=== PATIENT | male | born 1965 | race Caucasian/White ===

== ENCOUNTER → 2017-10-01 08:16 | Outpatient (CLI) | payer OTHER, SELFPAY ==
--- NOTE | 2017-10-01 08:18 | RAD_ITS ---
STUDY: X-RAY - LEFT SHOULDER REASON FOR EXAM: Male, 51 years old. Chronic shoulder pain. No history of trauma. TECHNIQUE: 3 view(s) of the shoulder. COMPARISON: None. FINDINGS: Normal glenohumeral articulation. Normal acromioclavicular joint. Normal acromion. Normal humeral head and visualized proximal humerus. The soft tissue structures are unremarkable. Normal visualized pulmonary apex. RAD/Shoulder min 2 Views IMPRESSION: Normal x-ray examination of the shoulder. Electronically Signed: Arjun Diaz MD at 15:39 EST Tel [phone], Service support ,
== END ==
PROVIDERS: Family Provider Family Medicine; PCP Family Medicine; Visit Provider Orthopaedic Surgery
DX: M25.512 Pain in left shoulder (principal)
CPT/HCPCS: 73030

== ENCOUNTER → 2018-03-03 12:38 | Outpatient (CLI) | payer OTHER, SELFPAY ==
[2018-03-03 14:21] LABS: Absolute Lymphocyte Count 2.06 X10^3/ul (0.83-4.51); Absolute Neutrophil Count 2.5 X10^3/uL (2.0-7.7); Basophil# 0.02 X10^3/uL; Basophil% 0.4 % (0-1); Eosinophil# 0.07 X10^3/uL; Eosinophils% 1.3 % (0-5); Hemoglobin 14.9 g/dl (13.0-16.5); Lymphocyte # 2.06 X10^3/ul (4.0); Lymphocyte % 38.6 % (19-41); Mean Corp Hgb Conc 33.9 g/gl (32-36); Mean Corpuscular Hgb 32.5 pg (27.0-32.0); Mean Corpuscular Volume 96.1 fL (80-94); Monocyte# 0.65 X10^3/uL; Monocyte% 12.2 % (0-10); Neutrophil # 2.52 X10^3/uL (2.7-7.7); Neutrophil % 47.1 % (47-70); Platelet Count 155 K/mm3 (150-450); RBC Distribution Width SD 41.6 fl (35.1-43.9); Red Blood Count 4.58 M/mm3 (4.6-6.2); White Blood Count 5.3 K/mm3 (4.4-11.0)
[2018-03-03 14:22] LABS: POSITIVE COUNT NO; POSITIVE DIFFERENTIAL NO; POSITIVE MORPHOLOGY NO
[2018-03-03 14:37] LABS: Anion Gap 8 (5-15); BUN 16 mg/dL (7-18); BUN/Creat Ratio 16.4 RATIO (10-20); Calcium,Total 9.3 mg/dL (8.5-10.1); Chloride 104 mmol/L (98-107); Creatinine, Serum 0.98 mg/dL (0.70-1.30); EST Glomerular Filtration Rate 86 mL/min (>60); Est Glom Filt Rate - Afr Amer 104 mL/min (>60); Glucose 93 mg/dL (74-106); PSA,Total- Diagnostic 0.97 ng/mL (0.0-4.0); Potassium 3.9 mmol/L (3.5-5.1); Sodium Level 141 mmol/L (136-145)
== END ==
PROVIDERS: Family Provider Family Medicine; PCP Family Medicine; Visit Provider Family Medicine
DX: R31.9 Hematuria, unspecified (principal)
CPT/HCPCS: 36415; 80048; 84153; 85025; 87086

== ENCOUNTER → 2018-03-06 08:42 | Outpatient (CLI) | payer OTHER, SELFPAY ==
--- NOTE | 2018-03-06 | CYSPIN_PTH ---
PATIENT: KIMMY GUTHRIE LOC: [facility] U#:[id number] AGE/SX: 59/M ROOM: RE03/06/[address]: Dr. Kana Suarez MD : 1965 BED: DIS: SPEC #: [id number] RECD: 03/06/18 11:37 STATUS: NASRIN AMIRA #: [id number] JAKUB: 03/06/18 00:[address]: Kana Suarez DEPT: CYTOLOGY RECD BY: Saravanan Stephens Tissues: Urine Procedures: Pap Stain (control) Special Stain Group II Cytospin Fluid HEADER OPERATION: Not noted PRE-OP DIAGNOSIS: Hematuria TISSUE SUBMITTED: Urine for cytology DIAGNOSIS CYTOLOGY Urine for cytology (cytospin): Negative for malignant cells. AM:alissa 03/09/18 CYTOLOGY STUDY Slides are reviewed. CYTOLOGY GROSS Received is 2700 ml of clear yellow fluid labeled with the patient's name and and designated per the requisition as urine. Submitted for cytology preparation. 03/06/18 TC:5 CPT: 77546
[2018-03-06 08:44] LABS: Cytology, Body Fluid / CSF SEE PATHOLOGY REPORT
== END ==
PROVIDERS: Family Provider Family Medicine; PCP Family Medicine; Visit Provider Family Medicine
DX: R31.9 Hematuria, unspecified (principal)
CPT/HCPCS: 81050; 88108; 88313

== ENCOUNTER → 2018-03-06 09:48 | Outpatient (CLI) | payer OTHER, SELFPAY ==
--- NOTE | 2018-03-06 09:51 | US_ITS ---
STUDY: RENAL ULTRASOUND - COMPLETE REASON FOR EXAM: Male, 52 years old. Hematuria. TECHNIQUE: Ultrasound evaluation of the kidneys was performed with real-time and static hoffman-scale imaging. COMPARISON: None. FINDINGS: RIGHT KIDNEY: Normal location of the right kidney, which is normal in size. The right kidney measures 10.4 cm. There is a normal cortex of the right kidney. The renal cortex measures 1.5 cm. There is no right renal mass or cyst. There are no right renal calculi. There is no right hydronephrosis. DISTAL RIGHT URETER: There is non-visualization of the distal right ureter. There is no demonstrated right ureterovesical junction calculus. There are 2 visualized right ureteral jets. LEFT KIDNEY: Normal location of the left kidney, which is normal in size. The left kidney measures 11.1 cm. There is a normal cortex of the left kidney. The renal cortex measures 2.1 cm. There is no left renal mass or cyst. There is a 7 mm calcification in the lower pole with shadowing. There is no left hydronephrosis. DISTAL LEFT URETER: There is non-visualization of the distal left ureter. There is no demonstrated left ureterovesical junction calculus. There is a visualized left ureteral jet. BLADDER: The distended urinary bladder has a volume of 482 ml. There is a normal wall thickness of the distended urinary bladder. There is no demonstrated mass within the urinary bladder. There are no demonstrated bladder calculi. Prostate mildly invaginates into the bladder floor. US/Kidney and Bladder IMPRESSION: 1. 2 ureteral jets seen on the right. Question duplicated collecting system. The right kidney is otherwise unremarkable. 2. Nonobstructing left renal calculi without other abnormality. 3. Normal urinary bladder. 4. Mild prostatic enlargement which invaginates into the bladder floor. Electronically Signed: Jhonatan Pablo DO at 22:39 EDT Tel [phone], Service support ,
== END ==
PROVIDERS: Family Provider Family Medicine; PCP Family Medicine; Visit Provider Family Medicine
DX: R31.9 Hematuria, unspecified (principal)
CPT/HCPCS: 76770

== ENCOUNTER → 2018-03-18 07:00 | Outpatient (CLI) | payer OTHER, SELFPAY | PROVIDERS: Family Provider Family Medicine; PCP Family Medicine; Visit Provider Urology | DX: N20.0 Calculus of kidney (principal) | CPT/HCPCS: 74176 ==

== ENCOUNTER → 2018-12-22 | Outpatient (CLI) | payer OTHER, SELFPAY ==
[2018-12-22 11:20] VITALS: BMI 21.0
== END | disposition home or self-care (01) ==
LOC: LABSPEC 14:22
PROVIDERS: Family Provider Family Medicine; PCP Family Medicine; Referring Provider Physician Assistant Medical; Visit Provider Physician Assistant Medical
DX: J02.9 Acute pharyngitis, unspecified (principal)
CPT/HCPCS: 87081

== ENCOUNTER → 2019-05-03 | Outpatient (CLI) | payer OTHER, SELFPAY ==
[2018-12-22 11:20] VITALS: BMI 21.0
--- NOTE | 2019-05-03 17:06 | RAD_ITS ---
STUDY: X-RAY - LUMBAR SPINE REASON FOR EXAM: Male, 53 years old. Acute low back pain. TECHNIQUE: 5 view(s) of the lumbar spine were obtained. COMPARISON: None FINDINGS: Normal lumbar lordosis. There is no substantial scoliosis. There is a normal alignment of the vertebrae. Normal vertebral bodies and endplates. There is multi-level degenerative disc disease with multi-level disc space narrowing. There is no demonstrated fracture. There are degenerative changes of the facet joints. There is no obvious organomegaly, mass, dilated bowel or pathologic calcifications. RAD/L/S Spine Min 4 Views IMPRESSION: Multilevel degenerative disc disease and degenerative arthropathy of the lumbar spine. Electronically Signed: Kath Patton MD at 10:00 EDT , Service support ,
--- NOTE | 2019-05-03 17:06 | RAD_ITS ---
STUDY: X-RAY - PELVIS AND RIGHT HIP REASON FOR EXAM: Male, 53 years old. Decreased range of motion of the right hip. TECHNIQUE: 3 views of the pelvis and hip. COMPARISON: CT of the abdomen and pelvis dated March 18, 2018. FINDINGS: There is a non-specific bowel gas pattern. Normal visualized soft tissue structures. Iliac wings and sacrum are obscured by bowel gas. Normal bilateral superior and inferior pubic rami. Normal pubic symphysis. Normal bilateral ischial tuberosities. There are osteoarthritic changes of the femoral head with marginal osteophyte formation. Normal acetabulum. Normal hip joint. RAD/HIP, UNI W/ Pelvis 2-3 Views IMPRESSION: Mild degenerative arthropathy. Electronically Signed: Kath Patton MD at 10:45 EDT , Service support ,
== END | disposition home or self-care (01) ==
LOC: MTRAD 17:06
PROVIDERS: Family Provider Family Medicine; PCP Family Medicine; Referring Provider Family Medicine; Visit Provider Family Medicine
DX: M54.5 Low back pain (principal); M25.651 Stiffness of right hip, not elsewhere classified
CPT/HCPCS: 72110; 73502

== ENCOUNTER → 2020-06-01 15:00 | Outpatient (CLI) | payer OTHER, SELFPAY ==
[2018-12-22 11:20] VITALS: BMI 21.0
[2020-06-01 17:58] LABS: Anion Gap 9 (5-15); BUN 10 mg/dL (7-18); BUN/Creat Ratio 9.8 RATIO (10-20); Calcium,Total 9.9 mg/dL (8.5-10.1); Chloride 103 mmol/L (98-107); Cholesterol 227 mg/dL (200); Creatinine, Serum 1.02 mg/dL (0.70-1.30); EST Glomerular Filtration Rate 81 mL/min (>60); Est Glom Filt Rate - Afr Amer 98 mL/min (>60); Glucose 95 mg/dL (74-106); High Density Lipoprotein 112 mg/dL; Potassium 3.7 mmol/L (3.5-5.1); Sodium Level 138 mmol/L (136-145); Triglycerides 53 mg/dL; Very Low Density Lipoprotein 11 mg/dL (5-40)
== END ==
PROVIDERS: PCP Family Medicine; Referring Provider Family Medicine; Visit Provider Nurse Practitioner Family
DX: Z00.00 Encounter for general adult medical examination without abnormal findings (principal); Z13.220 Encounter for screening for lipoid disorders
CPT/HCPCS: 36415; 80048; 80061

== ENCOUNTER 2022-04-26 06:27 | Day surgery (SDC) | payer OTHER, SELFPAY ==
[2022-04-26] MEDS: Lactated Ringers 1,000 ML 15 ML IV (06:40)
--- NOTE | 2022-04-26 06:49 | PCM.HP.STD ---
[facility] - General General Date of Service: 04/26/22 Chief Complaint: Screening for intestinal cancer [facility] Narrative KIMMY GUTHRIE, is a 56 M who presents who presents via open access today for screening colonoscopy. He has no complaints. Previous colonoscopy was April 18, 2017. He has a family history with a mother had colon cancer. He is enjoying good health. He denies bright red blood per rectum or melena. No abdominal pain. No history of DVT. [facility] Medical History (Updated 04/24/22 @ 09:41 by Rody Nice) Alcohol use Back pain Former smoker Wears glasses Home Medications NK 10/01/17 [History Last Taken Unknown] Allergy/AdvReac Type Severity Reaction Status Date / Time No Known Allergies Allergy Verified 04/26/22 06:54 Family History Mother Breast cancer Colon cancer Surgical History (Updated 03/08/22 @ 16:08 by Jaki Lares) History of colonoscopy Social History Smoking Status: Former smoker ROS Constitutional Constitutional: Reports systems reviewed and no addt'l complaints, except as documented Cardiovascular Cardiovascular: Denies chest pain Respiratory/Chest Respiratory/Chest: Denies shortness of breath at rest Gastrointestinal Gastrointestinal: Denies abdominal pain, change in bowel habits, hematochezia or melena Physical Exam Const alert, oriented x3 and no apparent distress General Appearance: cooperative and comfortable Eyes General Eye: normal appearance of both eyes Neck General: normal visual inspection Chest inspection of chest normal Resp Effort and Inspection: able to speak in complete sentences and symmetric chest movement Auscultation: clear to auscultation bilaterally Cardio regular rate and regular rhythm GI soft to palpation, non-tender and non-distended Extremity no calf tenderness Neuro oriented x3 Psych thought process normal Assessment & Plan Assessment/Plan (1) Encounter for screening for malignant neoplasm of colon: PLAN: The patient presents via open access today. He presents for screening colonoscopy with possible biopsy or polypectomy as indicated. He is aware of the technique, benefit, risk, alternatives. He has had an opportunity to ask and have questions answered. We will proceed as noted. Russell Lam M.D., F.A.C.S.
[2022-04-26 06:55] VITALS: BP 136/79; PULSE 69; RESP 16; TEMP 37; O2SAT 100; BMI 20.7
[2022-04-26 07:39] VITALS: BP 117/77; BP 136/79; PULSE 69; RESP 16; TEMP 36.5; O2SAT 99
--- NOTE | 2022-04-26 07:39 | OP.COLON_ITS ---
Patient Name: Ulises Aguiar Procedure Date: 04/26/2022 7:17 AM Date of : 1965 Age: 56 Procedure: Colonoscopy Indications: Family history of colon cancer in a first-degree relative Providers: Russell Lam MD Medicines: See the Anesthesia note for documentation of the administered medications Patient Profile: Last Colonoscopy: 5 years ago. Complications: No immediate complications. Procedure: Pre-Anesthesia Assessment: - Prior to the procedure, a History and Physical was performed, and patient medications and allergies were reviewed. The patient's tolerance of previous anesthesia was also reviewed. The risks and benefits of the procedure and the sedation options and risks were discussed with the patient. All questions were answered, and informed consent was obtained. Prior Anticoagulants: The patient has taken no previous anticoagulant or antiplatelet agents. ASA Grade Assessment: II - A patient with mild systemic disease. After reviewing the risks and benefits, the patient was deemed in satisfactory condition to undergo the procedure. After I obtained informed consent, the scope was passed under direct vision. Throughout the procedure, the patient's blood pressure, pulse, and oxygen saturations were monitored continuously. The colonoscope was introduced through the anus and advanced to the cecum, identified by appendiceal orifice and ileocecal valve. The colonoscopy was performed without difficulty. The patient tolerated the procedure well. The quality of the bowel preparation was good. Scope In: 7:25:12 AM Scope Withdrawal Time 0 hours 6 minutes 41 seconds Scope Out: 7:35:16 AM Total Procedure Duration Time 0 hours 10 minutes 4 seconds Findings: The perianal and digital rectal examinations were normal. Scattered diverticula were found in the sigmoid colon and descending colon. The exam was otherwise without abnormality. Impression: - Diverticulosis in the sigmoid colon and in the descending colon. - The examination was otherwise normal. - No specimens collected. Recommendation: - Discharge patient to home. - Resume previous diet. - Continue present medications. - Repeat colonoscopy in 5 years for surveillance. Procedure Code(s): --- Professional --- 36211, Colonoscopy, flexible; diagnostic, including collection of specimen(s) by brushing or washing, when performed (separate procedure) Diagnosis Code(s): --- Professional --- Z80.0, Family history of malignant neoplasm of digestive organs K57.30, Diverticulosis of large intestine without perforation or abscess without bleeding CPT copyright 2017 [employer] [place] [employer]. All rights reserved. The codes documented in this report are preliminary and upon tipple tender review may be revised to meet current compliance requirements. Russell Lam MD 04/26/2022 7:39:32 AM This report has been signed electronically. Number of Addenda: 0 Note Initiated On: 04/26/2022 7:17 AM
--- NOTE | 2022-04-26 07:40 | OP.CCLET_ITS ---
04/26/2022 Kana Suarez [address] [facility] [address] [place] [address] Re : Colonoscopy procedure for Ulises Aguiar Dear Dr. Suarez This procedure was performed on Tuesday, April 26, 2022. My impressions and recommendations are as follows: Impressions : - Diverticulosis in the sigmoid colon and in the descending colon. - The examination was otherwise normal. - No specimens collected. Recommendations : - Discharge patient to home. - Resume previous diet. - Continue present medications. - Repeat colonoscopy in 5 years for surveillance. My findings are described in the full procedure note, which is enclosed. If I can be of further assistance, please feel free to contact me at Doctor phone number(s): Work: . Sincerely, Russell Lam MD 04/26/2022 7:39:32 AM This report has been signed electronically.
[2022-04-26 07:45] VITALS: BP 126/86; BP 136/79; PULSE 54; RESP 14; O2SAT 100
[2022-04-26 07:50] VITALS: BP 125/79; BP 136/79; PULSE 72; RESP 16; O2SAT 97
[2022-04-26 07:54] VITALS: BP 118/79; BP 136/79; PULSE 73; RESP 16; TEMP 36.7; O2SAT 100
[2022-04-26 08:00] VITALS: BP 136/79
== END 2022-04-26 08:18 | disposition home or self-care (01) ==
LOC: EN 06:29 → AC 06:30
PROVIDERS: PCP Family Medicine; Referring Provider Family Medicine; Visit Provider Surgery
PROC: 0DJD8ZZ Inspection of Lower Intestinal Tract, Via Natural or Artificial Opening Endoscopic (ICD-10-PCS; CPT 45378; principal; 2022-04-26 07:25)
DX: Z12.11 Encounter for screening for malignant neoplasm of colon (principal); K57.30 Diverticulosis of large intestine without perforation or abscess without bleeding; Z80.0 Family history of malignant neoplasm of digestive organs; Z87.891 Personal history of nicotine dependence
CPT/HCPCS: 45378; J7120

== ENCOUNTER → 2023-01-06 | Outpatient (CLI) | payer OTHER, SELFPAY ==
[2023-01-06 15:43] LABS: Cholesterol 226 mg/dL (200); EST Glomerular Filtration Rate 92 mL/min (>60); Est Glom Filt Rate - Afr Amer 111 mL/min (>60); Glucose 101 mg/dL (74-106); High Density Lipoprotein 84 mg/dL; PSA,Total - Annual Screen 4.26 ng/mL (0.00-4.00); Triglycerides 68 mg/dL; Very Low Density Lipoprotein 14 mg/dL (5-40)
[2023-01-06 16:34] LABS: Hepatitis C Antibody Non-Reactive (Nonreactive)
== END | disposition home or self-care (01) ==
LOC: MTLAB 12:41
PROVIDERS: PCP Family Medicine; Referring Provider Family Medicine; Visit Provider Family Medicine
DX: Z00.00 Encounter for general adult medical examination without abnormal findings (principal); Z13.220 Encounter for screening for lipoid disorders; Z12.5 Encounter for screening for malignant neoplasm of prostate
CPT/HCPCS: 36415; 80061; 82565; 82947; 84153; 86803; G0103

== ENCOUNTER → 2023-03-25 | Outpatient (CLI) | payer OTHER, SELFPAY ==
[2023-03-25 15:42] LABS: PSA,Total- Diagnostic 1.97 ng/mL (0.0-4.0)
== END | disposition home or self-care (01) ==
LOC: LAB 14:04
PROVIDERS: PCP Family Medicine; Referring Provider Urology; Visit Provider Urology
DX: R97.20 Elevated prostate specific antigen [PSA] (principal)
CPT/HCPCS: 36415; 84153

== ENCOUNTER → 2024-01-08 | Outpatient (CLI) | payer OTHER, SELFPAY ==
[2024-01-08 16:07] LABS: Cholesterol 213 mg/dL (200); Creatinine, Serum 0.85 mg/dL (0.70-1.30); EST Glomerular Filtration Rate 99 mL/min (>60); Est Glom Filt Rate - Afr Amer 119 mL/min (>60); Glucose 85 mg/dL (74-106); High Density Lipoprotein 98 mg/dL; PSA,Total- Diagnostic 6.15 ng/mL (0.0-4.0); Triglycerides 43 mg/dL; Very Low Density Lipoprotein 9 mg/dL (5-40)
== END | disposition home or self-care (01) ==
LOC: MFPLAB 11:49
PROVIDERS: PCP Family Medicine; Visit Provider Family Medicine
DX: Z00.00 Encounter for general adult medical examination without abnormal findings (principal); R97.20 Elevated prostate specific antigen [PSA]; Z13.220 Encounter for screening for lipoid disorders
CPT/HCPCS: 36415; 80061; 82565; 82947; 84153

== ENCOUNTER → 2024-12-09 | Outpatient (CLI) | payer OTHER, SELFPAY ==
--- NOTE | 2024-12-09 15:42 | RAD_ITS ---
PROCEDURE: NECK FOR SOFT TISSUE 12/09/2024 REASON FOR EXAM: L SUBMANDIBULAR PAIN AND LYMPH NODE SWELLING WITH FULLNESS ON SWA TECHNIQUE: 2 views of the soft tissue neck COMPARISON: None available FINDINGS: Epiglottis and aryepiglottic folds appear within limits. No prevertebral soft tissue swelling. No evidence of airway narrowing. Visualized apices appear clear. Spondylosis/discogenic change appears greatest at C5-6 and C6-7. RAD/Neck for Soft Tissue IMPRESSION: Airway appears within limits. Spondylosis/discogenic change appears greatest at C5-6 and C6-7. Reading Location: [id number]
[2024-12-09 17:49] LABS: Absolute Lymphocyte Count 2.14 X10^3/uL (0.83-4.51); Absolute Neutrophil Count 2.3 X10^3/uL (2.0-7.7); Basophil# 0.04 X10^3/uL; Basophil% 0.8 % (0-1); Eosinophil# 0.08 X10^3/uL; Eosinophils% 1.5 % (0-5); Hematocrit 42.9 % (40-54); Hemoglobin 14.6 g/dL (13.0-16.5); Lymphocyte # 2.14 X10^3/ul (0.83-4.51); Lymphocyte % 40.5 % (19-41); Mean Corpuscular Volume 94.1 fL (80-94); Mean Platelet Vol. 11.1 fl (6.2-12.0); Monocyte# 0.72 X10^3/uL; Monocyte% 13.6 % (0-10); NRBC Flagged by Analyzer 0 % (0-5); Neutrophil # 2.29 X10^3/uL (2.7-7.7); Neutrophil % 43.2 % (47-70); Platelet Count 193 K/mm3 (150-450); RBC Distribution Width SD 41.9 fl (35.1-43.9); Red Blood Count 4.56 M/mm3 (4.6-6.2); White Blood Count 5.3 K/mm3 (4.4-11.0)
[2024-12-09 17:52] LABS: Erythrocyte Sedimentation Rate 4 mm/hr (0-20)
[2024-12-09 18:15] LABS: ALB/GLOB Ratio 1.8 RATIO (0.9-2.4); AST(SGOT) 31 U/L (<=37); Alanine Aminotransfer ALT/SGPT 20 U/L (<=46); Albumin, Serum 4.6 g/dL (3.5-5.0); Alkaline Phosphatase 63 U/L (40-129); Anion Gap 11 (5-15); BUN 15 mg/dL (4-19); BUN/Creat Ratio 16.9 RATIO (10-20); Calcium,Total 9.9 mg/dL (7.6-11.0); Carbon Dioxide 26.3 mmol/L (21.0-32.0); Chloride 103 mmol/L (98-108); Cholesterol 209 mg/dL (<=200); Creatinine, Serum 0.88 mg/dL (0.70-1.20); EST Glomerular Filtration Rate 99 (>60); Globulin 2.6 g/dL (2.2-4.2); Glucose 92 mg/dL (70-99); High Density Lipoprotein 91 mg/dL; Low Density Lipoprotein Calc. 105 mg/dL; PSA,Total - Annual Screen 1.87 ng/mL (0.02-4.00); Protein, Total 7.2 g/dL (5.9-8.4); Sodium Level 140 mmol/L (133-145); Total Bilirubin 0.34 mg/dL (0.00-1.30); Triglycerides 66 mg/dL; Very Low Density Lipoprotein 13 mg/dL (5-40)
[2024-12-09 18:18] LABS: CRP < 3.00 mg/L (0.0-3.0)
[2024-12-13 13:08] LABS: ANTINUCLEAR ANTIBODIES DIRECT Negative (Negative)
== END | disposition home or self-care (01) ==
LOC: MTLAB 15:41
PROVIDERS: PCP Family Medicine; Referring Provider Family Medicine; Visit Provider Family Medicine
DX: Z12.5 Encounter for screening for malignant neoplasm of prostate (principal); R59.0 Localized enlarged lymph nodes; M54.2 Cervicalgia
CPT/HCPCS: 36415; 70360; 80053; 80061; 84153; 85025; 85652; 86038; 86140; G0103

== ENCOUNTER → 2025-02-08 | Outpatient (CLI) | payer OTHER, SELFPAY ==
--- NOTE | 2025-02-08 06:13 | CT_ITS ---
PROCEDURE: SOFT TISSUE NECK WITHOUT CONTR 02/08/2025 REASON FOR EXAM: NECK PAIN No known injury. TECHNIQUE: SOFT TISSUE NECK WITHOUT CONTR CONTRAST: None One or more dose reduction techniques were used (e.g., Automated exposure control, adjustment of the mA and/or kV according to patient size, use of iterative reconstruction technique). RADIATION DOSE SUMMARY: CTDlvol: 14.45 mGy DLP: 429.69 mGycm COMPARISON: None FINDINGS: Airway: Midline and patent. Salivary glands: Unremarkable. Lymph nodes: No cervical lymphadenopathy. Thyroid: Unremarkable. Vasculature: Unremarkable Orbits: Unremarkable at visualized levels. Paranasal sinuses and mastoids: Minimal mucosal thickening at the base of the maxillary sinuses. Lung apices: Clear. Upper mediastinum: Visualized mediastinum is unremarkable. Bones: Unremarkable. Other: CT/Soft Tissue Neck without Contr IMPRESSION: NO ACUTE FINDINGS. Reading Location: [place] [id number]
--- NOTE | 2025-02-08 06:13 | CT_ITS ---
PROCEDURE: SOFT TISSUE NECK WITHOUT CONTR 02/08/2025 REASON FOR EXAM: NECK PAIN No known injury. TECHNIQUE: SOFT TISSUE NECK WITHOUT CONTR CONTRAST: None One or more dose reduction techniques were used (e.g., Automated exposure control, adjustment of the mA and/or kV according to patient size, use of iterative reconstruction technique). RADIATION DOSE SUMMARY: CTDlvol: 14.45 mGy DLP: 429.69 mGycm COMPARISON: None FINDINGS: Airway: Midline and patent. Salivary glands: Unremarkable. Lymph nodes: No cervical lymphadenopathy. Thyroid: Unremarkable. Vasculature: Unremarkable Orbits: Unremarkable at visualized levels. Paranasal sinuses and mastoids: Minimal mucosal thickening at the base of the maxillary sinuses. Lung apices: Clear. Upper mediastinum: Visualized mediastinum is unremarkable. Bones: Unremarkable. Other: CT/Soft Tissue Neck without Contr IMPRESSION: NO ACUTE FINDINGS. Reading Location: [place] [address]
--- OUTSIDE RECORDS SUMMARY | 2025-02-08 06:14 | XMS RPT_ITS | CCD ---
Author Organization [facility] Care Team Providers Care Tsa Screener Name Role Phone Russell Lam MD Unavailable Cher Moreno LPN Unavailable Unavailab Cher Wayne LPN Unavailable Unavailab Cher Wayne LPN Unavailable Unavailab Russell Figueroa MD Unavailable Dr. Jennie Suarez Primary Care Provider Jaki Lares Attending Provider Unavailable Dr. Jennie Suarez Referring Provider Dr. Russell Lam Attending Provider Dr. Russell Lam Other Provider Dr. Jennie Suarez MD Primary Care Provider Dr. Jennie Suarez MD Attending Provider Dr. Jennie Suarez MD Referring Provider Jennie Suarez Referring Unavailable Jennie Suarez Attending Unavailable Jennie Suarez Primary Care Unavailable Jennie Suarez Unavailable Jennie Suarez Primary Care Unavailable JENNIE SUAREZ MD, MD, ERIC A Primary Care Unavailable Medications Completed/Discontinued Medications Medication Drug Class(es) Dates Sig (Normalized) Sig (Original) aspirin 81 mg delayed release oral tablet (3 sources) Platelet Aggregation Inhibitor, Nonsteroidal Anti-inflammatory Drug Start: 04-08-2017 ADULT ASPIRIN EC LOW STRENGTH 81 MG [facility] ASPIRIN [id number] Russell Lam MD Start: 04-08-2017 ADULT ASPIRIN EC LOW STRENGTH 81 MG [facility] ASPIRIN [id number] Russell Lam MD Drug Treatment Unknown - unknown (1 source) No information a vailable. polyethylene glycol 3350 187768 mg / potassium chloride 2970 mg / sodium bicarbonate 6740 mg / sodium chloride 5860 mg / sodium sulfate 94347 mg powder for oral solution (2 sources) Osmotic Laxative Start: 04-08-2017 PEG-3350/ELECTROLYTES 236 GM SOLR as directed PEG 7869-MNN-JFYRV-NACL-NASUL F [id number] Arlene Alaniz PA-C Start: 04-08-2017 PEG-3350/ELECT ROLYTES 236 GM SOLR as directed PEG 2852-QQY-FQVOH-NACL-NASULF [id number] Arlene Alaniz PA-C Problems Active Problems Problem Classification Problem Date Documented Da te Episodic/Chronic Lymphadenitis (1 source) Localized enlarged lymph nodes; Translations: [Localized enlarged lymph nodes] Onset: 12-22-2024 Episodic Unclassified (6 sources) Encounter for screening for malignant neoplasm of intestinal tract, unspecified; Translations: [Patient encounter status] Onset: 04-08-2017 04-08-2017 Episodic Unclassified (2 sources) Digestive system disease screening; Translations: [Encounter for screening for malignant neoplasm of intestinal tract, unspecified] Onset: 04-08-2017 04-08-2017 Past or Other Problems Problem Classification Problem Date Documented Da te Episodic/Chronic Inflammation; infection of eye (except that caused by tuberculosis or sexually transmitteddisease) (11 sources) Blepharitis; Translations: [[place] eye disease] Onset: 02-03-2017 02-03-2017 Episodic Results Test Name Value Interpretation Reference Range Facility ANTINUCLEAR ANTIBODIES DIREC Ton 12-13-2024 MALA,DIRECT Negative Normal Negative [facility] [place] Comment on above: Order Comment: Order Date: 12/09/24 Order Info: [id number] - MALA Result Comment: Perf ormed at: - [facility] [address] [id number] Hide Buffer: Sly Rivera PhD, Phone: [phone] Performed By: #### L 101.9894, Z900.4779, W446.6263, P6708.2938 #### [facility] [place] Laboratory [facility] [place], [address] Absolute lymphocyte countOrd ered By: Jennie Suarez on 12-09-2024 Lymphocytes Auto (Unsp spec) [#/Vol] 2.14 10*3/uL 0.83-4.51 [facility] [place] Absolute neutrophil countOrd ered By: Jennie Suarez on 12-09-2024 Neutrophils (Bld) [#/Vol] 2.3 10*3/uL 2.0-7.7 [facility] [place] Anion gap in Serum or Plasma Ordered By: Jennie Suarez on 12-09-2024 Anion gap [Moles/Vol] 11 mmol/L 12-09 [facility] Automated lymphocyte count a s percentage of total leukocytesOrdered By: Jennie Suarez on 12-09-2024 Lymphocytes/100 WBC Auto (Unsp spec) 40.5 % [facility] [place] BUN/creatinine ratioOrdered By: Jennie Suarez on 12-09-2024 Urea nitrogen/Creatinine [Mass ratio] 16.9 mg/mg - [facility] Basophil percentageOrdered B y: Jennie Suarez on 12-09-2024 Basophils/100 WBC (Bld) 0.8 % 0-1 [facility] Bilirubin, totalOrdered By: Jennie Suarez on 12-09-2024 Bilirubin [Mass/Vol] 0.34 mg/dL 0.00-1.30 [facility] CBC W/Diff, Automatedon 11-25 Absolute Lymph 2.14 X10 3/uL Normal 0.83-4.51 [facility] [place] Comment on above: Order Comment: Order Date: 12/09/24 Order Info: [id number] - CBCD Order Info: [id number] - SED Performed By: #### L 100.0100, L501.9910, L500.4100 #### [facility] Laboratory [address] [place], [address] Absolute Neut 2.3 X10 3/uL Normal 2.0-7.7 [facility] [place] Comment on above: Order Comment: Order Date: 12/09/24 Order Info: [id number] - CBCD Order Info: [id number] - SED Performed By: #### L 100.0100, L501.9910, L500.4100 #### [facility] Laboratory [address] [place], [address] Basophils/100 WBC (Bld) 0.8 % Normal 0-1 [facility] Comment on above: Order Comment: Order Date: 12/09/24 Order Info: 183-1 - CBCD Order Info: [id number] - SED Performed By: #### L 100.0100, L501.9910, L500.4100 #### [facility] Laboratory [address] [place], [address] Eosinophils/100 WBC (Bld) 1.5 % Normal 0-5 [facility] [place] Comment on above: Order Comment: Order Date: 12/09/24 Order Info: 183- - CBCD Order Info: [id number] - SED Performed By: #### L 100.0100, L501.9910, L500.4100 #### [facility] Laboratory [address] [place], [address] Erythrocyte distribution width (RBC) [Ratio] 12.0 % Normal 11.6-14.6 [facility] [place] Comment on above: Order Comment: Order Date: 12/09/24 Order Info: 183- - CBCD Order Info: [id number] - SED Performed By: #### L 100.0100, L501.9910, L500.4100 #### [facility] [place] Laboratory [address] [place], [address] Hematocrit (Bld) [Volume fraction] 42.9 % Normal 40-54 [facility] [place] Comment on above: Order Comment: Order Date: 12/09/24 Order Info: 183-1 - CBCD Order Info: [id number] - SED Performed By: #### L 100.0100, L501.9910, L500.4100 #### [facility] Laboratory [address] [place], [address] Hemoglobin (Bld) [Mass/Vol] 14.6 g/dL Normal 13.0-16.5 [facility] [place] Comment on above: Order Comment: Order Date: 12/09/24 Order Info: 183-07 - CBCD Order Info: [id number] - SED Performed By: #### L 100.0100, L501.9910, L500.4100 #### [facility] Laboratory [address] [place], [address] IG% 0.400 Normal 0.0-0.9 [facility] Comment on above: Order Comment: Order Date: 12/09/24 Order Info: 183- - CBCD Order Info: [id number] - SED Result Comment: IG% - Immature Granulocytes (promyelocytes, myelocytes and metamyelocytes) > 1% indicates that a LEFT SHIFT is Present. Performed By: #### L 100.0100, L501.9910, L500.4100 #### [facility] Laboratory [address] [place], [address] Lymphocytes/100 WBC (Bld) 40.5 % Normal 19-41 [facility] [place] Comment on above: Order Comment: Order Date: 12/09/24 Order Info: 183-07 - CBCD Order Info: [id number] - SED Performed By: #### L 100.0100, L501.9910, L500.4100 #### [facility] Laboratory [address] [place], [address] MCH (RBC) [Entitic mass] 32.0 pg Normal 27.0-32.0 [facility] Comment on above: Order Comment: Order Date: 12/09/24 Order Info: [id number] - CBCD Order Info: [id number] - SED Performed By: #### L 100.0100, L501.9910, L500.4100 #### [facility] Laboratory [address] [place], [address] MCHC (RBC) [Mass/Vol] 34.0 g/dL Normal 32-36 [facility] Comment on above: Order Comment: Order Date: 12/09/24 Order Info: 183-1 - CBCD Order Info: [id number] - SED Performed By: #### L 100.0100, L501.9910, L500.4100 #### [facility] Laboratory [address] [place], [address] MCV (RBC) [Entitic vol] 94.1 fL High 80-94 [facility] Comment on above: Order Comment: Order Date: 12/09/24 Order Info: 183- - CBCD Order Info: [id number] - SED Performed By: #### L 100.0100, L501.9910, L500.4100 #### [facility] Laboratory [address] [place], [address] Monocytes/100 WBC (Bld) 13.6 % High 0-10 [facility] Comment on above: Order Comment: Order Date: 12/09/24 Order Info: 183-07 - CBCD Order Info: [id number] - SED Performed By: #### L 100.0100, L501.9910, L500.4100 #### [facility] [place] Laboratory [address] [place], [address] Neutrophils/100 WBC (Bld) 43.2 % Low 47-70 [facility] Comment on above: Order Comment: Order Date: 12/09/24 Order Info: 183- - CBCD Order Info: [id number] - SED Performed By: #### L 100.0100, L501.9910, L500.4100 #### [facility] Laboratory [address] [place], [address] Nucleated RBC (Bld) [#/Vol] 0 10*3/uL Normal 0-5 [facility] Comment on above: Order Comment: Order Date: 12/09/24 Order Info: 183- - CBCD Order Info: [id number] - SED Performed By: #### L 100.0100, L501.9910, L500.4100 #### [facility] Laboratory [address] [place], [address] Platelet mean volume (Bld) [Entitic vol] 11.1 fL Normal 6.2-12.0 [facility] Comment on above: Order Comment: Order Date: 12/09/24 Order Info: 183-1 - CBCD Order Info: [id number] - SED Performed By: #### L 100.0100, L501.9910, L500.4100 #### [facility] Laboratory [address] [place], [address] Platelets (Bld) [#/Vol] 193 10*3/uL Normal 150-450 [facility] Comment on above: Order Comment: Order Date: 12/09/24 Order Info: 183- - CBCD Order Info: [id number] - SED Performed By: #### L 100.0100, L501.9910, L500.4100 #### [facility] Laboratory [address] [place], [address] RBC (Bld) [#/Vol] 4.56 10*6/uL Low 4.6-6.2 [facility] Comment on above: Order Comment: Order Date: 12/09/24 Order Info: 183- - CBCD Order Info: [id number] - SED Performed By: #### L 100.0100, L501.9910, L500.4100 #### [facility] Laboratory [address] [place], [address] RDW SD 41.9 fl Normal 35.1-43.9 [facility] Comment on above: Order Comment: Order Date: 12/09/24 Order Info: [id number] - CBCD Order Info: [id number] - SED Performed By: #### L 100.0100, L501.9910, L500.4100 #### [facility] [place] Laboratory [address] [place], [address] WBC (Bld) [#/Vol] 5.3 10*3/uL Normal 4.4-11.0 [facility] Comment on above: Order Comment: Order Date: 12/09/24 Order Info: [id number] - CBCD Order Info: [id number] - SED Performed By: #### L 100.0100, L501.9910, L500.4100 #### [facility] Laboratory [address] [place], [place], [id number] CRPon 12-09-2024 C-REACTIVE PROT < 3.00 Normal 0.0-3.0 [facility] Comment on above: Order Comment: Order Date: 12/09/24 Order Info: [id number] - CMP Order Date: 11/29/24 Order Info: [id number] - LIPID Order Info: [id number] - CRP Order Info: [id number] - PSA Performed By: #### L 101.9900, L500.4050, L501.6710, L3100.5475 #### [facility] Laboratory [address] [facility] [place], [place], [id number] Calculated very low density lipoprotein (VLDL) cholesterol measurementOrdered By: Jennie Suarez on 12-09-2024 Calculated very low density lipoprotein (VLDL) cholesterol measurement 13 mg/dL 5-40 [facility] [place] Carbon dioxide, total [Moles /volume] in Central venous bloodOrdered By: Jennie Suarez on 12-09-2024 CO2 [Moles/Vol] 26.3 mmol/L 21.0-32.0 [facility] Chloride assayOrdered By: Jim Suarez on 12-09-2024 Chloride [Moles/Vol] 103 mmol/L 98-108 [facility] Comprehensive Metabolic Prof ilon 12-09-2024 Albumin [Mass/Vol] 4.6 g/dL Normal 3.5-5.0 [facility] Comment on above: Order Comment: Order Date: 12/09/24 Order Info: [id number] - CMP Order Date: 11/29/24 Order Info: [id number] - LIPID Order Info: [id number] - CRP Order Info: [id number] - PSA Performed By: #### L 101.9900, L500.4050, L501.6710, L3100.5475 #### [facility] Laboratory [address] [place], [address] Albumin/Globulin [Mass ratio] 1.8 {ratio} Normal 0.9-2.4 [facility] Comment on above: Order Comment: Order Date: 12/09/24 Order Info: [id number] - CMP Order Date: 11/29/24 Order Info: [id number] - LIPID Order Info: [id number] - CRP Order Info: 2851 - PSA Performed By: #### L 101.9900, L500.4050, L501.6710, L3100.5475 #### [facility] Laboratory [address] [place], [address] ALK PHOS 63 U/L Normal 40-129 [facility] Comment on above: Order Comment: Order Date: 12/09/24 Order Info: [id number] - CMP Order Date: 11/29/24 Order Info: [id number] - LIPID Order Info: [id number] - CRP Order Info: [id number] - PSA Performed By: #### L 101.9900, L500.4050, L501.6710, L3100.5475 #### [facility] Laboratory [address] [place], [address] ALT [Catalytic activity/Vol] 20 U/L Normal <=46 [facility] [place] Comment on above: Order Comment: Order Date: 12/09/24 Order Info: [id number] - CMP Order Date: 11/29/24 Order Info: [id number] - LIPID Order Info: [id number] - CRP Order Info: [id number] - PSA Performed By: #### L 101.9900, L500.4050, L501.6710, L3100.5475 #### [facility] Laboratory [address] [place], [address] AST [Catalytic activity/Vol] 31 U/L Normal <=37 [facility] Comment on above: Order Comment: Order Date: 12/09/24 Order Info: [id number] - CMP Order Date: 11/29/24 Order Info: [id number] - LIPID Order Info: [id number] - CRP Order Info: [id number] - PSA Performed By: #### L 101.9900, L500.4050, L501.6710, L3100.5475 #### [facility] Laboratory [address] [place], [address] Bilirubin [Mass/Vol] 0.34 mg/dL Normal 0.00-1.30 [facility] Comment on above: Order Comment: Order Date: 12/09/24 Order Info: [id number]- - CMP Order Date: 11/29/24 Order Info: [id number] - LIPID Order Info: [id number] - CRP Order Info: [id number] - PSA Performed By: #### L 101.9900, L500.4050, L501.6710, L3100.5475 #### [facility] Laboratory [address] [place], [address] BUN/CRE 16.9 RATIO Normal 10-20 [facility] Comment on above: Order Comment: Order Date: 12/09/24 Order Info: [id number]- - CMP Order Date: 11/29/24 Order Info: [id number] - LIPID Order Info: [id number] - CRP Order Info: [id number] - PSA Performed By: #### L 101.9900, L500.4050, L501.6710, L3100.5475 #### [facility] Laboratory [address] [place], [address] Calcium [Mass/Vol] 9.9 mg/dL Normal 7.6-11.0 [facility] Comment on above: Order Comment: Order Date: 12/09/24 Order Info: [id number]- - CMP Order Date: 11/29/24 Order Info: [id number] - LIPID Order Info: [id number] - CRP Order Info: [id number] - PSA Performed By: #### L 101.9900, L500.4050, L501.6710, L3100.5475 #### [facility] Laboratory [address] [place], [address] Chloride [Moles/Vol] 103 mmol/L Normal 98-108 [facility] Comment on above: Order Comment: Order Date: 12/09/24 Order Info: [id number] - CMP Order Date: 11/29/24 Order Info: [id number] - LIPID Order Info: [id number] - CRP Order Info: 285-1 - PSA Performed By: #### L 101.9900, L500.4050, L501.6710, L3100.5475 #### [facility] Laboratory [address] [place], [address] CO2 [Moles/Vol] 26.3 mmol/L Normal 21.0-32.0 [facility] Comment on above: Order Comment: Order Date: 12/09/24 Order Info: [id number] - CMP Order Date: 11/29/24 Order Info: [id number] - LIPID Order Info: [id number] - CRP Order Info: [id number] - PSA Performed By: #### L 101.9900, L500.4050, L501.6710, L3100.5475 #### [facility] Laboratory [address] [place], [address] Creatinine [Mass/Vol] 0.88 mg/dL Normal 0.70-1.20 [facility] Comment on above: Order Comment: Order Date: 12/09/24 Order Info: [id number] - CMP Order Date: 11/29/24 Order Info: [id number] - LIPID Order Info: [id number] - CRP Order Info: 2851 - PSA Performed By: #### L 101.9900, L500.4050, L501.6710, L3100.5475 #### [facility] Laboratory [address] [place], [address] GAP 11 Normal 5-15 [facility] Comment on above: Order Comment: Order Date: 12/09/24 Order Info: [id number] - CMP Order Date: 11/29/24 Order Info: [id number] - LIPID Order Info: [id number] - CRP Order Info: [id number] - PSA Performed By: #### L 101.9900, L500.4050, L501.6710, L3100.5475 #### [facility] [address] [place], [address] GFR/1.73 sq M.predicted among non-blacks MDRD (S/P/Bld) [Vol rate/Area] 99 mL/min/{1.73_m2} Normal >60 [facility] Comment on above: Order Comment: Order Date: 12/09/24 Order Info: [id number]- - CMP Order Date: 11/29/24 Order Info: [id number] - LIPID Order Info: [id number] - CRP Order Info: [id number] - PSA Result Comment: mL/m in/1.73m2 CKD-EPI Creatinine Equation (2020) Performed By: #### L 101.9900, L500.4050, L501.6710, L3100.5475 #### [facility] [address] [facility] [place], [address] Globulin (S) [Mass/Vol] 2.6 g/dL Normal 2.2-4.2 [facility] Comment on above: Order Comment: Order Date: 12/09/24 Order Info: [id number]- - CMP Order Date: 11/29/24 Order Info: [id number] - LIPID Order Info: [id number] - CRP Order Info: [id number] - PSA Performed By: #### L 101.9900, L500.4050, L501.6710, L3100.5475 #### [facility] [address] [place], [address] Glucose [Mass/Vol] 92 mg/dL Normal 70-99 [facility] Comment on above: Order Comment: Order Date: 12/09/24 Order Info: [id number]- - CMP Order Date: 11/29/24 Order Info: [id number] - LIPID Order Info: [id number] - CRP Order Info: [id number] - PSA Performed By: #### L 101.9900, L500.4050, L501.6710, L3100.5475 #### [facility] Laboratory [address] [place], [address] Potassium [Moles/Vol] 4.0 mmol/L Normal 3.3-5.1 [facility] Comment on above: Order Comment: Order Date: 12/09/24 Order Info: [id number] - CMP Order Date: 11/29/24 Order Info: [id number] - LIPID Order Info: [id number] - CRP Order Info: 285-1 - PSA Performed By: #### L 101.9900, L500.4050, L501.6710, L3100.5475 #### [facility] [address] [place], [address] Sodium [Moles/Vol] 140 mmol/L Normal 133-145 [facility] Comment on above: Order Comment: Order Date: 12/09/24 Order Info: [id number] - CMP Order Date: 11/29/24 Order Info: [id number] - LIPID Order Info: [id number] - CRP Order Info: 285-1 - PSA Performed By: #### L 101.9900, L500.4050, L501.6710, L3100.5475 #### [facility] [address] [place], [address] T PROT 7.2 g/dL Normal 5.9-8.4 [facility] Comment on above: Order Comment: Order Date: 12/09/24 Order Info: [id number] - CMP Order Date: 11/29/24 Order Info: [id number] - LIPID Order Info: [id number] - CRP Order Info: 285-1 - PSA Performed By: #### L 101.9900, L500.4050, L501.6710, L3100.5475 #### [facility] [address] [place], [address] Urea nitrogen [Mass/Vol] 15 mg/dL Normal 4-19 [facility] Comment on above: Order Comment: Order Date: 12/09/24 Order Info: [id number] - CMP Order Date: 11/29/24 Order Info: [id number] - LIPID Order Info: [id number] - CRP Order Info: [id number] - PSA Performed By: #### L 101.9900, L500.4050, L501.6710, L3100.5475 #### [facility] [address] [place], [place], [address] Eosinophil percentageOrdered By: Jennie Suarez on 12-09-2024 Eosinophils/100 WBC (Bld) 1.5 % 0-5 [facility] Erythrocyte Sed Rateon 12-09 SED RATE 4 mm/hr Normal 0-20 [facility] Comment on above: Order Comment: Order Date: 12/09/24 Order Info: [id number] - CBCD Order Info: [id number] - SED Performed By: #### L 101.9900, L500.4050, L501.6710, L3100.5475 #### [facility] [address] [place], [place], [id number] Erythrocyte distribution wid th ratioOrdered By: Jennie Suarez on 12-09-2024 Erythrocyte distribution width (RBC) [Ratio] 12.0 % 11.6-14.6 [facility] Erythrocyte distribution wid th standard deviationOrdered By: Jennie Suarez on 12-09-2024 Erythrocyte distribution width (RBC) [Ratio] 41.9 fl 35.1-43.9 [facility] Erythrocyte sedimentation ra teOrdered By: Jennie Suarez on 12-09-2024 ESR (Bld) [Velocity] 4 mm/h 0-20 [facility] Glomerular filtration rate ( GFR) estimation/1.73 sq m using serum, plasma, or whole bOrdered By: Jennie Suarez on 12-09-2024 GFR/1.73 sq M.predicted among non-blacks MDRD (S/P/Bld) [Vol rate/Area] 99 mL/min/{1.73_m2} >60 [facility] Comment on above: mL/min/1.73m2 CKD-EP I Creatinine Equation (2020) Hematocrit Auto (Bld) [Volum e fraction]Ordered By: Jennie Suarez on 12-09-2024 Hematocrit (Bld) [Volume fraction] 42.9 % 40-54 [facility] Hemoglobin measurementOrdere d By: Jennie Suarez on 12-09-2024 Hemoglobin (Bld) [Mass/Vol] 14.6 g/dL 13.0-16.5 [facility] [facility] [place] Immature granulocytes/100 WB C Auto (Bld)Ordered By: Jennie Suarez on 12-09-2024 Immature granulocytes/100 WBC (Bld) 0.400 % 0.0-0.9 [facility] [place] Comment on above: IG% - Immature Granu locytes (promyelocytes, myelocytes and metamyelocytes) > 1% indicates that a LEFT SHIFT is Present. LDL calc ser/plasOrdered By: Jennie Suarez on 12-09-2024 Cholesterol in LDL [Mass/Vol] 105 mg/dL [facility] [place] Comment on above: Tlabwjawqp=414-120 m g/dL & Higher Rxux=514 mg/dL or greater Laboratory - Chemistry and C hemistry - challengeOrdered By: Jennie Suarez on 12-09-2024 AST [Catalytic activity/Vol] 31 U/L <38 [facility] [place] Lipid Profileon 12-09-2024 CHOL:HDL 2.30 Normal [facility] [place] Comment on above: Order Comment: Order Date: 12/09/24 Order Info: [id number] - CMP Order Date: 11/29/24 Order Info: [id number] - LIPID Order Info: [id number] - CRP Order Info: [id number] - PSA Performed By: #### L 101.9900, L500.4050, L501.6710, L3100.5475 #### [facility] [place] Laboratory [address] [place], [address] Cholesterol [Mass/Vol] 209 mg/dL High <=200 [facility] Comment on above: Order Comment: Order Date: 12/09/24 Order Info: [id number] - CMP Order Date: 11/29/24 Order Info: [id number] - LIPID Order Info: [id number] - CRP Order Info: [id number] - PSA Result Comment: Chol esterol level, Desirable <200 mg/dL Borderline high cholesterol 200-239 mg/dL High cholesterol >=240 mg/dL Recommendations of the NCEP Adult Treatment Panel for the following risk-cutoff thresholds for the [place] population. Performed By: #### L 101.9900, L500.4050, L501.6710, L3100.5475 #### [facility] [place] Laboratory [address] [place], [address] Cholesterol in HDL [Mass/Vol] 91 mg/dL Normal [facility] [place] Comment on above: Order Comment: Order Date: 12/09/24 Order Info: [id number] - CMP Order Date: 11/29/24 Order Info: [id number] - LIPID Order Info: [id number] - CRP Order Info: [id number] - PSA Result Comment: [place] [employer] Cholesterol Education Program (NCEP) guidelines: <40 mg/dL: Low HDL-cholesterol (major risk factor for CHD) >= 60 mg/dL: High HDL-cholesterol (negative risk factor for CHD) HDL-cholesterol is affected by a number of factors, e.g. smoking, exercise, hormones, sex and age. Performed By: #### L 101.9900, L500.4050, L501.6710, L3100.5475 #### [facility] [place] Laboratory [address] [place], [address] Cholesterol in LDL [Mass/Vol] 105 mg/dL Normal [facility] [place] Comment on above: Order Comment: Order Date: 12/09/24 Order Info: [id number] - CMP Order Date: 11/29/24 Order Info: [id number] - LIPID Order Info: [id number] - CRP Order Info: [id number] - PSA Result Comment: Bord hzhcqk=712-960 mg/dL Higher Exyg=663 mg/dL or greater Performed By: #### L 101.9900, L500.4050, L501.6710, L3100.5475 #### [facility] [place] Laboratory [address] [place], [address] Cholesterol in VLDL [Mass/Vol] 13 mg/dL Normal 5-40 [facility] [place] Comment on above: Order Comment: Order Date: 12/09/24 Order Info: [id number] - CMP Order Date: 11/29/24 Order Info: [id number] - LIPID Order Info: [id number] - CRP Order Info: [id number] - PSA Performed By: #### L 101.9900, L500.4050, L501.6710, L3100.5475 #### [facility] [place] Laboratory [address] [place], [place], [address] Triglyceride [Mass/Vol] 66 mg/dL Normal [facility] Comment on above: Order Comment: Order Date: 12/09/24 Order Info: [id number] - CMP Order Date: 11/29/24 Order Info: [id number] - LIPID Order Info: [id number] - CRP Order Info: [id number] - PSA Result Comment: The drugs N-Acetylcysteine and Metamizole may falsely depress this assay. Normal range: <150 mg/dL Borderline High: 150-199 mg/dL High: 200-499 mg/dL Very High: >500 mg/dL Performed By: #### L 101.9900, L500.4050, L501.6710, L3100.5475 #### [facility] [place] Laboratory [address] [place], [place], [id number] MCV (mean corpuscular volume ) determinationOrdered By: Jennie Suarez on 12-09-2024 MCV (RBC) [Entitic vol] 94.1 fL High 80-94 [facility] Mean corpuscular hemoglobin (MCH) determinationOrdered By: Jennie Suarez on 12-09-2024 MCH (RBC) [Entitic mass] 32.0 pg 27.0-32.0 [facility] [place] Mean corpuscular hemoglobin concentration (MCHC) determinationOrdered By: Jennie Suarez on 12-09-2024 MCHC (RBC) [Mass/Vol] 34.0 g/dL 32-36 [facility] Mean platelet volume determi nationOrdered By: Jennie Suarez on 12-09-2024 Platelet mean volume (Bld) [Entitic vol] 11.1 fL 6.2-12.0 [facility] [place] Monocyte percentageOrdered B y: Jennie Suarez on 12-09-2024 Monocytes/100 WBC (Bld) 13.6 % High 0-10 [facility] Neck for Soft Tissueon 12-09 Neck for Soft Tissue [facility] Imaging Services [address] [place], [place] [address] Neck for Soft Tissue MR#: [id number] Acct: [id number] Name: KIMMY GUTHRIE Rep #: [id number] : 1965 M 59 From: Russell Garcia MD PCP: Dr. Jennie Suarez MD Status: REG CLI Study: Neck for Soft Tissue Date of Exam: 12/09/24 Exam# [id number] Ordering Dr: Jennie Suarez MD PROCEDURE: NECK FOR SOFT TISSUE 12/09/2024 REASON FOR EXAM: L SUBMANDIBULAR PAIN AND LYMPH NODE SWELLING WITH FULLNESS ON SWA TECHNIQUE: 2 views of the soft tissue neck COMPARISON: None available FINDINGS: Epiglottis and aryepiglottic folds appear within limits. No prevertebral soft tissue swelling. No evidence of airway narrowing. Visualized apices appear clear. Spondylosis/discogen ic change appears greatest at C5-6 and C6-7. RAD/Neck for Soft Tissue IMPRESSION: Airway appears within limits. Spondylosis/discogen ic change appears greatest at C5-6 and C6-7. Reading Location: [facility] CC: Dr. Jennie Suarez MD Quantitative Researcher: Signed Normal [facility] [place] Neutrophil percentageOrdered By: Jennie Suarez on 12-09-2024 Neutrophils/100 WBC (Bld) 43.2 % Low 47-70 [facility] [place] Nucleated red blood cell per centageOrdered By: Jennie Suarez on 12-09-2024 Nucleated RBC/100 WBC (Bld) [Ratio] 0 % 0-5 [facility] [place] PSA,Total - Annual Screenon 12-09-2024 PSA,TOT SCREEN 1.87 ng/mL Normal 0.02-4.00 [facility] [place] Comment on above: Order Comment: Order Date: 12/09/24 Order Info: [id number] - CMP Order Date: 11/29/24 Order Info: [id number] - LIPID Order Info: [id number] - CRP Order Info: [id number] - PSA Result Comment: This test was performed using the [employer] tPSA method. Measured values of a patient??sample can vary depending on the testing procedure used. PSA values determined on patient samples by different testing procedures cannot be used interchangeably. If there is a change in PSA assays while monitoring therapy, sequential testing should be performed to confirm baseline values. Performed By: #### L 101.9900, L500.4050, L501.6710, L3100.5475 #### [facility] [place] Laboratory [address] [place], [address] Platelet countOrdered By: Jim Suarez on 12-09-2024 Platelets (Bld) [#/Vol] 193 10*3/uL 150-450 [facility] [place] Potassium measurement (mass/ volume)Ordered By: Jennie Suarez on 12-09-2024 Potassium (Unsp spec) [Mass/Vol] 4.0 mmol/L 3.3-5.1 [facility] [place] RBC Auto (Bld) [#/Vol]Ordere d By: Jennie Suarez on 12-09-2024 RBC (Bld) [#/Vol] 4.56 10*6/uL Low 4.6-6.2 [facility] Screening total cholesterol/ high density lipoprotein (HDL) cholesterol ratioOrdered By: Jennie Suarez on 12-09-2024 Cholesterol.total/Mayda sterol in HDL [Mass ratio] 2.30 {ratio} [facility] [place] Serum creatinine measurement (mass/volume)Ordered By: Jennie Suarez on 12-09-2024 Creatinine [Mass/Vol] 0.88 mg/dL 0.70-1.20 [facility] Serum globulin measurementOr dered By: Jennie Suarez on 12-09-2024 Globulin (S) [Mass/Vol] 2.6 g/dL 2.2-4.2 [facility] Serum glucose measurement (m ass/volume)Ordered By: Jennie Suarez on 12-09-2024 Glucose [Mass/Vol] 92 mg/dL 70-99 [facility] Serum or plasma C reactive p rotein measurement (mass/volume)Ordered By: Jennie Suarez on 12-09-2024 CRP [Mass/Vol] mg/L 0.0-3.0 [facility] [place] Serum or plasma alanine darnell otransferase (ALT) measurementOrdered By: Jennie Suarez on 12-09-2024 ALT [Catalytic activity/Vol] 20 U/L <47 [facility] [place] Serum or plasma albumin sedrick urement (mass/volume)Ordered By: Jennie Suarez on 12-09-2024 Albumin [Mass/Vol] 4.6 g/dL 3.5-5.0 [facility] Serum or plasma albumin/glob ulin mass ratioOrdered By: Jennie Suarez on 12-09-2024 Albumin/Globulin [Mass ratio] 1.8 {ratio} 0.9-2.4 [facility] [place] Serum or plasma alkaline aidan sphatase measurementOrdered By: Jennie Suarez on 12-09-2024 ALP [Catalytic activity/Vol] 63 U/L 40-129 [facility] [place] Serum or plasma calcium sedrick urement (mass/volume)Ordered By: Jennie Suarez on 12-09-2024 Calcium [Mass/Vol] 9.9 mg/dL 7.6-11.0 [facility] Serum or plasma cholesterol in HDL measurement (mass/volume)Ordered By: Jennie Suarez on 12-09-2024 Cholesterol in HDL [Mass/Vol] 91 mg/dL >40 [facility] [place] Comment on above: National Cholesterol Education Program (NCEP) guidelines:<40 mg/dL: Low HDL-cholesterol (major risk factor for CHD)>= 60 mg/dL: High HDL-cholesterol (negative risk factor for CHD)HDL-cholesterol is affected by a number of factors, e.g. smoking, exercise, hormones, sex and age. Serum or plasma cholesterol measurement (mass/volume)Ordered By: Jennie Suarez on 12-09-2024 Cholesterol [Mass/Vol] 209 mg/dL High <201 [facility] Comment on above: Cholesterol level, D esirable <200 mg/dLBorderline high cholesterol 200-239 mg/dLHigh cholesterol >=240 mg/dLRecommendations of the NCEP Adult Treatment Panel for the following risk-cutoff thresholds for the [place] population. Serum or plasma urea nitroge n measurement (mass/volume)Ordered By: Jennie Suarez on 12-09-2024 Urea nitrogen [Mass/Vol] 15 mg/dL 4-19 [facility] [place] Sodium levelOrdered By: Jennie Suarez on 12-09-2024 Sodium [Moles/Vol] 140 mmol/L 133-145 [facility] Total proteinOrdered By: Sonia Suarez on 12-09-2024 Protein [Mass/Vol] 7.2 g/dL 5.9-8.4 [facility] Triglycerides measurementOrd ered By: Jennie Suarez on 12-09-2024 Triglyceride [Mass/Vol] 66 mg/dL <199 [facility] Comment on above: The drugs N-Acetylcy steine and Metamizole may falsely depress this assay. Normal range: <150 mg/dLBorderline High: 150-199 mg/dLHigh: 200-499 mg/dLVery High: >500 mg/dL White blood cell (WBC) count Ordered By: Jennie Suarez on 12-09-2024 WBC (Bld) [#/Vol] 5.3 10*3/uL 4.4-11.0 [facility] Glucoseon 01-08-2024 Glucose [Mass/Vol] 85 mg/dL Normal 74-106 [facility] Comment on above: Order Comment: Order Date: 01/08/24 Order Info: [id number] - LIPID Order Info: [id number] - CRE Order Info: [id number] - PSA Performed By: #### L 501.0100, L501.9940 #### [facility] [place] Laboratory [address] [place], [place], [id number] Lipid Profileon 01-08-2024 Cholesterol [Mass/Vol] 213 mg/dL High 200 [facility] Comment on above: Order Comment: Order Date: 01/08/24 Order Info: [id number] - LIPID Order Info: [id number] - CRE Order Info: [id number] - PSA Result Comment: <200 mg/dL Desirable 200-240 mg/dL Borderline >240 mg/dL High Risk Performed By: #### L 501.1105, L500.4100 #### [facility] [place] Laboratory [address] [place], [place], [id number] Cholesterol in HDL [Mass/Vol] 98 mg/dL Normal [facility] [place] Comment on above: Order Comment: Order Date: 01/08/24 Order Info: [id number] - LIPID Order Info: [id number] - CRE Order Info: [id number] - PSA Result Comment: The drugs N-Acetylcysteine and Metamizole may falsely depress this assay. Reference Range HDL <40 mg/dL Low HDL Cholesterol HDL >or= 60 mg/dL High HDL Cholesterol Performed By: #### L 501.1105, L500.4100 #### [facility] [place] Laboratory [address] [place], [address] Cholesterol in LDL [Mass/Vol] 106 mg/dL Normal 0-130 [facility] [place] Comment on above: Order Comment: Order Date: 01/08/24 Order Info: [id number] - LIPID Order Info: [id number] - CRE Order Info: [id number] - PSA Performed By: #### L 501.1105, L500.4100 #### [facility] [place] Laboratory [address] [place], [address] Cholesterol in VLDL [Mass/Vol] 9 mg/dL Normal 5-40 [facility] [place] Comment on above: Order Comment: Order Date: 01/08/24 Order Info: [id number] - LIPID Order Info: [id number] - CRE Order Info: [id number] - PSA Performed By: #### L 501.1105, L500.4100 #### [facility] [place] Laboratory [address] [place], [address] Triglyceride [Mass/Vol] 43 mg/dL Normal [facility] Comment on above: Order Comment: Order Date: 01/08/24 Order Info: [id number] - LIPID Order Info: [id number] - CRE Order Info: [id number] - PSA Result Comment: The drugs N-Acetylcysteine and Metamizole may falsely depress this assay. Serum Triglycerides Reference Interval Normal <150 mg/dL Borderline high 150 - 199 mg/dL High 200 - 499 mg/dL Very High > or = 500 mg/dL Performed By: #### L 501.1105, L500.4100 #### [facility] [place] Laboratory [address] [place], [address] PSA,Total- [employer] 12-26 PSA, DIAGNOSTIC 6.15 ng/mL High 0.0-4.0 [facility] [place] Comment on above: Order Comment: Order Date: 01/08/24 Order Info: [id number] - LIPID Order Info: [id number] - CRE Order Info: [id number] - PSA Result Comment: This test was performed using the TPSA assay method for the [facility] chemistry system. Values obtained with different assay methods cannot be used interchangably. When changing PSA assays in the course of monitoring a patient, additional sequential testing should be carried out to confirm baseline values. Performed By: #### L 501.0100, L501.9940 #### [facility] [place] Laboratory [address] [place], [address] Serum Creatinine AND GFRon 0 - Creatinine [Mass/Vol] 0.85 mg/dL Normal 0.70-1.30 [facility] Comment on above: Order Comment: Order Date: 01/08/24 Order Info: [id number] - LIPID Order Info: [id number] - CRE Order Info: [id number] - PSA Result Comment: The validity of the calculated GFR GFRAA in patients over 70 years has not been determined. Clinical correlation is essential. Performed By: #### L 501.1105, L500.4100 #### [facility] [place] Laboratory [address] [place], [address] EST GFR - AA 119 mL/min Normal >60 [facility] [place] Comment on above: Order Comment: Order Date: 01/08/24 Order Info: [id number] - LIPID Order Info: [id number] - CRE Order Info: [id number] - PSA Result Comment: Afri can Vietnamese GFR Calc Performed By: #### L 501.1105, L500.4100 #### [facility] [place] Laboratory [address] [place], [address] GFR/1.73 sq M.predicted among non-blacks MDRD (S/P/Bld) [Vol rate/Area] 99 mL/min/{1.73_m2} Normal >60 [facility] [place] Comment on above: Order Comment: Order Date: 01/08/24 Order Info: [id number] - LIPID Order Info: [id number] - CRE Order Info: [id number] - PSA Result Comment: Non- GFR Calc Performed By: #### L 501.1105, L500.4100 #### [facility] [place], [address] No Panel InformationOrdered By: Jimmy Azevedo on 03-25-2023 Prostate Specific Antigen Total 1.97 ng/mL 0.0-4.0 [facility] [place] Comment on above: This test was perfor med using the TPSA assay method for [employer] chemistry system. Values obtained with differentassay methods cannot be used interchangably.When changing PSA assays in the course of monitoring apatient, additional sequential testing should be carriedout to confirm baseline values. Basophil percentageOrdered B y: Dr. Suarez on 01-06-2023 Cholesterol [Mass/Vol] 226 mg/dL <200 [facility] Comment on above: <200 mg/dL Desirable 200-240 mg/dL Borderline >240 mg/dL High Risk Glucose [Mass/Vol] 101 mg/dL 74-106 [facility] Comment on above: Fasting Glucose resu lt from 100 to 125 mg/dL suggests IMPAIRED HOMEOSTASIS per A.D.A. criteria. Triglyceride [Mass/Vol] 68 mg/dL <199 [facility] Comment on above: The drugs N-Acetylcy steine and Metamizole may falsely depress this assay.Serum Triglycerides Reference Interval Normal <150 mg/dL Borderline high 150 - 199 mg/dL High 200 - 499 mg/dL Very High > or = 500 mg/dL No Panel InformationOrdered By: Dr. Suarez on 01-06-2023 Estimated GFR (MDRD) Amer 111 mL/min >60 [facility] [place] Comment on above: GFR Calc Estimated GFR (MDRD) Non-Af Amer 92 mL/min >60 [facility] [place] Comment on above: Non- GFR Calc Hepatitis C Antibody Non-Reactive Nonreactive [facility] Comment on above: Non Reactive: < 0.8 Equivocal: >/= 0.8 to < 1.0 Reactive: >/= 1.0The CDC recommends that a reactive/equivocal HCV antibody result be followed up by the HCV Nucleic Acid Amplificationtest ([id number]) Prostate Specific Antigen Screen 4.26 ng/mL 0.00-4.00 [facility] [place] Comment on above: This test was perfor med using the TPSA assay method for the[facility] chemistry system. Values obtained with differentassay methods cannot be used interchangably.When changing PSA assays in the course of monitoring apatient, additional sequential testing should be carriedout to confirm baseline values. Serum or plasma cholesterol in HDL measurement (mass/volume)Ordered By: Dr. Suarez on 01-06-2023 Cholesterol in HDL [Mass/Vol] 84 mg/dL >40 [facility] [place] Comment on above: The drugs N-Acetylcy steine and Metamizole may falsely depress this assay. Reference Range HDL <40 mg/dL Low HDL Cholesterol HDL >or= 60 mg/dL High HDL Cholesterol Serum or plasma cholesterol in VLDL measurement (mass/volume)Ordered By: Dr. Suarez on 01-06-2023 Cholesterol in VLDL [Mass/Vol] 14 mg/dL 5-40 [facility] [place] Serum or plasma creatinine m easurement (mass/volume)Ordered By: Dr. Suarez on 01-06-2023 Creatinine [Mass/Vol] 0.90 mg/dL 0.70-1.30 [facility] Comment on above: The validity of the calculated GFR & GFRAA in patients over 70 years has not been determined. Clinical correlation is essential. Serum or plasma low density lipoprotein (LDL) cholesterol measurement (mass/volume)Ordered By: Dr. Suarez on 01-06-2023 Cholesterol in LDL [Mass/Vol] 128 mg/dL 0-130 [facility] [place] Office Visit: c-scopeon 03-28 Alcoholism counseling (procedure) no Invalid Interpretation Code [facility] [employer] Work Phone: Documentation of current medications (procedure) Done Invalid Interpretation Code [facility] [employer] Work Phone: Fall risk assessment No Invalid Interpretation Code [facility] [employer] Work Phone: Protein mass conc Done Invalid Interpretation Code [facility] [employer] Work Phone: Protein mass conc no Invalid Interpretation Code [facility] Work Phone: Tobacco smoking status NHIS Never Invalid Interpretation Code [facility] Work Phone: Tobacco smoking status NHIS Never smoker Invalid Interpretation Code [facility] Work Phone: Tobacco use CPHS Never smoker Invalid Interpretation Code [facility] Work Phone: Office Visit: UC: yo luis 02-03-2017 Documentation of current medications (procedure) Done Invalid Interpretation Code [facility] Work Phone: Documentation of current medications (procedure) T Invalid Interpretation Code [facility] Work Phone: Fall risk assessment No Invalid Interpretation Code [facility] Work Phone: Tobacco use HS Never smoker Invalid Interpretation Code [facility] Work Phone: Vital Signs Date Time Vital Sign Value Performing Clinician Facility 04-26-2022 07:54-0400 Body temperature 98 [degF] Dr. Jennie Suarez Work Phone: [facility] [place] Work Phone: 04-26-2022 07:54-0400 Diastolic blood pressure 79 mm[Hg] Dr. Jennie Suarez Work Phone: [facility] [place] Work Phone: 04-26-2022 07:54-0400 Heart rate 73 /min Dr. Jennie Suarez Work Phone: [facility] [place] Work Phone: 04-26-2022 07:54-0400 Respiratory rate 16 /min Dr. Jennie Suarez Work Phone: [facility] [place] Work Phone: 04-26-2022 07:54-0400 SaO2% (BldA) [Mass fraction] 100 % Dr. Jennie Suarez Work Phone: [facility] [place] Work Phone: 04-26-2022 07:54-0400 Systolic blood pressure 118 mm[Hg] Dr. Jennie Suarez Work Phone: [facility] [place] Work Phone: 04-26-2022 06:55-0400 Body height 167.[address] Jennie Suarez Work Phone: [facility] [place] Work Phone: 04-26-2022 06:55-0400 Body mass index (BMI) [Ratio] 20.7 kg/m2 Dr. Jennie Suarez Work Phone: [facility] [place] Work Phone: 04-26-2022 06:55-0400 Body weight 58.[address] Jennie Suarez Work Phone: [facility] [place] Work Phone: 03-08-2022 16:12-0400 Body mass index (BMI) [Ratio] 21.7 kg/m2 Dr. Jennie Suarez Work Phone: [facility] [place] Work Phone: 03-08-2022 16:12-0400 Body weight 61.[address] Jennie Suarez Work Phone: [facility] [place] Work Phone: 04-08-2017 13:03-0400 BMI (Body Mass Index) 20.98 kg/m2 Russell Lam MD [facility] Work Phone: 04-08-2017 13:03-0400 BP Diastolic 83 mm[Hg] Russell Lam MD [facility] Work Phone: 04-08-2017 13:03-0400 BP Systolic 137 mm[Hg] Russell Lam MD [facility] Work Phone: 04-08-2017 13:03-0400 Height 167.64 cm Russell Lam MD [facility] Work Phone: 04-08-2017 13:03-0400 Pulse (Heart Rate) 80 /min Russell Lam MD [facility] Work Phone: 04-08-2017 13:03-0400 Respiratory Rate 16 /min Russell Lam MD [facility] Work Phone: 04-08-2017 13:03-0400 Weight 58.97 kg Russell Lam MD [facility] Work Phone: 02-03-2017 11:43-0400 BMI (Body Mass Index) 20.56 kg/m2 Cher Moreno LPN [facility] No [facility] Clinic Work Phone: 02-03-2017 11:43-0400 Body Temperature 98.7 [degF] Cher Moreno LPN [facility] Work Phone: 02-03-2017 11:43-0400 BP Diastolic 72 mm[Hg] Cher Moreno LPN [facility] Work Phone: 02-03-2017 11:43-0400 BP Systolic 108 mm[Hg] Cher Moreno LPN [facility] Work Phone: 02-03-2017 11:43-0400 Height 167.64 cm Cher Moreno LPN [facility] Work Phone: 02-03-2017 11:43-0400 Pulse (Heart Rate) 66 /min Cher Moreno LPN [facility] Work Phone: 02-03-2017 11:43-0400 Respiratory Rate 12 /min Cher Moreno LPN [facility] Work Phone: 02-03-2017 11:43-0400 Weight 57.79 kg Cher Moreno LPN [facility] Work Phone: Encounters Encounter Date Encounter Type Care Provider Facility Start: 01-18-2025 ambulatory JENNIE SUAREZ MD [facility] Start: 12-09-2024 End: 12-09-[address] Jennie Suarez MD Work Phone: [facility] [place] Work Phone: Start: 12-09-2024 End: 12-09-[address] Jennie Suarez MD -Laboratory [place] Work Phone: Start: 12-09-2024 End: 12-09-2024 ambulatory Jennie Suarez Facility:[facility] [place] Start: 01-17-2024 Encounter for genera l adult medical examination without abnormal findings Jennie Suarez [facility] Start: 01-08-2024 End: 01-08-2024 ambulatory Jennie Suarez Facility:[facility] [place] Start: 03-25-2023 End: 03-25-2023 ambulatory [facility] Work Phone: Start: 03-25-2023 End: 03-25-2023 Patient encounter procedure [facility] [place]-Laboratory Work Phone: Start: 01-06-2023 End: 01-06-2023 ambulatory [facility] Work Phone: Start: 01-06-2023 End: 01-06-2023 Patient encounter procedure [facility]-Laboratory, [place] Start: 04-26-2022 Non-patient / Non-visit Dr. Jim Suarez Work Phone: [facility] Start: 04-26-2022 End: 04-26-2022 Admission to same day surgery center Dr. Jennie Suarez Work Phone: [facility] [place]-Endoscopy Start: 04-26-2022 End: 04-26-[address] Jennie Suarez Work Phone: [facility] [place] Work Phone: Start: 03-08-2022 Non-patient / Non-visit Dr. Jim Suarez Work Phone: [facility] Procedures Date Procedure Procedure Detail Performing Clinician Start: 12-09-[address] Sonia Suarez MD Work Phone: Comment on above: Performed at: [address] [id number] Director: Sly Rivera PhD, Phone: [phone] Start: 12-09-2024 Prostate specific an tigen measurement Dr. Jennie Suarez MD Work Phone: Comment on above: This test was perfor med using the [employer] tPSA method. Measured values of a patient sample can vary depending on the testing procedure used. PSA values determined on patient samples by different testing procedures cannot be used interchangeably. If there is a change in PSA assays while monitoring therapy, sequential testing should be performed to confirm baseline values. Start: 12-09-2024 X-ray of soft tissue of neck Dr. Jennie Suarez MD Work Phone: Start: 04-26-[address] Jennie De Jesus [facility] Work Phone: Plan of Treatment Date Care Activity Detail Author Start: 04-26-2022 Patient discharge [facility] Work Phone: Start: 04-08-2017 End: 04-08-2017 Colonoscopy flx dx w/collj spec when pfrmd Colonoscopy [facility] Work Phone: Start: 04-08-2017 End: 04-08-2017 Appointment Appointment [facility] Work Phone: Start: 04-08-2017 End: 04-08-2017 Diagnostic colonoscopy Colonoscopy [facility] Work Phone: Start: 02-03-2017 End: 02-03-2017 Appointment Appointment [facility] Work Phone: Colonoscopy [facility] Work Phone: Patient Education [facility] Work Phone: Patient referral [facility] Work Phone: Payers Date Payer Category Payer Unknown [id number] 2024 Private Health Insurance [id number] 2024 Self-pay [id number] 1965 Unknown [id number] Unknown [facility] [id number] Unknown [id number] Unknown [id number] Social History Date Type Detail Facility Start: 04-24-2022 Tobacco smoking stat [facility] Unknown if ever smoked [facility] [place] Start: 1965 Sex Assigned At Male [facility] Start: 04-24-2022 Tobacco smoking stat [facility] Ex-smoker (finding) [facility] Goals Date Patient Goal Desired Activity /State Mental Status Date Assessment Result Facility 04-26-2022 Cognitive function Voice/Name;Touch/Rishiki saniya [facility] [place] Work Phone: Radiology Diagnostic study note 12-10-2024 Note Date & Type Note Facility 12-10-2024 Radiology Diagnostic study note [facility] Imaging Services [address] [place] [address] Neck for Soft Tissue MR#: [id number] Acct: [id number] Name: KIMMY GUTHRIE Rep #: [id number] : 1965 M 59 From: Jg Garcia MD PCP: Dr. Jennie Suarez MD Status: REG CLI Study:Neck for Soft Tissue Date of Exam: 12/09/24 Exam# [id number] Ordering Dr: Jim Suarez MD PROCEDURE: NECK FOR SOFT TISSUE 12/09/2024 REASON FOR EXAM: L SUBMANDIBULAR PAIN AND LYMPH NODE SWELLING WITH FULLNESS ON SWA TECHNIQUE: 2 views of the soft tissue neck COMPARISON: None available FINDINGS: Epiglottis and aryepiglottic folds appear within limits. No prevertebral soft tissue swelling. No evidence of airway narrowing. Visualized apices appear clear. Spondylosis/discogenic change appears greatest at C5-6 and C6-7. RAD/Neck for Soft Tissue IMPRESSION: Airway appears within limits. Spondylosis/discogenic change appears greatest at C5-6 and C6-7. Reading Location: [facility] CC: Dr. Jennie Suarez MD ~ Quantitative Researcher: Signed [facility] Evaluation note Note Date & Type Note Facility Evaluation note Diagnosis Onset Date Encounter for screening for malignant neoplasm of colon acute [facility] Work Phone: Evaluation note Note Date & Type Note Facility Evaluation note No assessment information availa ble [facility] Work Phone: Reason for referral (narrative) Note Date & Type Note Facility Reason for referral (narrative) No reason for referral information available [facility] Work Phone: Chief Complaint and Reason for Visit Chief Complaint Amb Documentation Reason for Visit Encounter for screen ing for malignant neoplasm of colon Chief Complaint EORDER Chief Complaint Admit Date E-ORDER December 09, 2024 3:39p m Family History No Family History Records Found Relationship Condition Age at Onset Recorded Date/T jessica mother Malignant neoplasm of breast Unknown Malignant neoplasm of colon Unknown Advance Directives No Advanced Directives Records Found Advance Directive Response Recorded Date/ Time Living Will No April 24, 2022 9:41am Power of Die Finisher No March 9:41am Summary Purpose Additional Source Comments Care Teams (unrecognized sec tion and content) Team Status: Active Member Role Status Dates Dr. Jennie Suarez MD Family Provider Active Dr. Jennie Suarez MD Primary Care Provider Active Team Status: Inactive Member Role Status Dates Dr. Jennie Suarez MD Primary Care Provide r, Attending Provider, Referring Provider Active Team Status: Inactive Member Role Status Dates Dr. Jennie Suarez MD Primary Care Provider Active Dr. Jimmy Azevedo MD Attending Provider, Referr ing Provider Active Team Status: Inactive Member Role Status Dates Dr. Jennie Suarez MD Primary Care Provider Active Start: December 09, 2024 End: December 09, 2024 Dr. Jennie Suarez MD Attending Provider Active St art: December 09, 2024 End: December 09, 2024 Dr. Jennie Suarez MD Referring Provider Active St art: December 09, 2024 End: December 09, 2024 Goals (unrecognized section and content) Goals may be documented in a n alternate sectionGoals may be documented in an alternate sectionGoals may be documented in an alternate section (unrecognized sect ion and content) No Status Records FoundNo Status Records Found INFORMATION SOURCE (unrecogn ized section and content) DATE CREATED AUTHOR 12/25/2024 [facility] DATE CREATED AUTHOR AUTHOR'S JANIYA ESPARZA 01/19/2025 [facility] FOR RECORDS PERTAINING TO PATIENTS WHO ARE OR HAVE BEEN ENROLLED IN A CHEMICAL DEPENDENCY/SUBSTANCEABUSE PROGRAM, SOME INFORMATION MAY BE OMITTED. This clinical summary was aggregated from multiple sources. Caution should be exercised in using it in the provision of clinical care. This summary normalizes information from multiple sources, and as a consequence, information in this document may materially change the coding, format and clinical context of patient data. In addition, data may be omitted in some cases. CLINICAL DECISIONS SHOULD BE BASED ON THE PRIMARY CLINICAL RECORDS. [facility] [employer] provides no warranty or guarantee of the accuracy or completeness of information in this document.
--- OUTSIDE RECORDS SUMMARY | 2025-02-08 06:14 | XMS RPT_ITS | CCD ---
Author Organization [facility] Care Team Providers Care Electronic Game Developer Name Role Phone Russell Lam MD Unavailable [phone] Cher Moreno LPN Unavailable Unavailab Cher aWyne LPN Unavailable Unavailab Cher Wayne LPN Unavailable [...] ADULT ASPIRIN EC LOW STRENGTH 81 MG [facility] ASPIRIN [id number] Russell Lam MD Start: 04-08-2017 ADULT ASPIRIN EC LOW STRENGTH 81 MG [facility] ASPIRIN [id number] Russell Lam MD Drug Treatment Unknown - unknown (1 source) No information a vailable. polyethylene glycol 3350 187401 mg / potassium chloride 2970 mg / sodium bicarbonate 6740 mg / sodium chloride 5860 mg / sodium sulfate 95097 mg powder for oral solution (2 sources) Osmotic Laxative Start: 04-08-2017 PEG-3350/ELECTROLYTES 236 GM SOLR as directed PEG 2245-KLJ-ZREMI-NACL-NASUL F [id number] Arlene Alaniz PA-C Start: 04-08-2017 PEG-3350/ELECT ROLYTES 236 GM SOLR as directed PEG 7762-WDP-NZZFC-NACL-NASULF [id number] Arlene Alaniz PA-C Problems Active Problems Problem [...] or sexually transmitteddisease) (11 sources) Blepharitis; Translations: [[place] eye disease] Onset: 02-03-2017 02-03-2017 Episodic Results Test Name Value Interpretation Reference Range Facility ANTINUCLEAR ANTIBODIES DIREC Ton 12-13-2024 MALA,DIRECT Negative Normal Negative [facility] Comment on above: Order Comment: Order Date: 12/09/24 Order Info: [id number] - MALA Result Comment: Perf ormed at: - [facility] [address] [id number] Dump Truck Driver: Sly Rivera PhD, Phone: [phone] Performed By: #### L 101.9783, T800.4560, X749.4628, T5965.7992 #### [facility] [place], [address] Absolute lymphocyte countOrd ered By: Jennie Suarez on 12-09-2024 Lymphocytes Auto (Unsp spec) [#/Vol] 2.14 10*3/uL 0.83-4.51 [facility] Absolute neutrophil countOrd ered By: Jennie Suarez on 12-09-2024 Neutrophils (Bld) [#/Vol] 2.3 10*3/uL 2.0-7.7 [facility] Anion gap in Serum or Plasma Ordered By: Jennie Suarez on 12-09-2024 Anion gap [Moles/Vol] 11 mmol/L 12-09 [facility] Automated lymphocyte count a s percentage of total leukocytesOrdered By: Jennie Suarez on 12-09-2024 Lymphocytes/100 WBC Auto (Unsp spec) 40.5 % [facility] BUN/creatinine ratioOrdered By: Jennie Suarez on 12-09-2024 Urea nitrogen/Creatinine [Mass ratio] 16.9 mg/mg - [facility] Basophil percentageOrdered B y: Jennie Suarez on 12-09-2024 Basophils/100 WBC (Bld) 0.8 % 0-[address] [facility] Bilirubin, totalOrdered By: Jennie Suarez on 12-09-2024 Bilirubin [Mass/Vol] 0.34 mg/dL 0.00-1.30 [facility] CBC W/Diff, Automatedon 11-25 Absolute Lymph 2.14 X10 3/uL Normal 0.83-4.51 [facility] Comment on above: Order Comment: Order Date: 12/09/24 Order Info: 0184-1 - CBCD Order Info: 16980-1 - SED Performed By: #### L 100.0100, L501.9910, L500.4100 #### [facility] [address] [place], [address] Absolute Neut 2.3 X10 3/uL Normal 2.0-7.7 [facility] Comment on above: Order Comment: Order Date: 12/09/24 Order Info: 0184-1 - CBCD Order Info: 02734-0 - SED Performed By: #### L 100.0100, L501.9910, L500.4100 #### [facility] [address] [place], [address] Basophils/100 WBC (Bld) 0.8 % Normal 0-[address] [facility] Comment on above: Order Comment: Order Date: 12/09/24 Order Info: 183-1 - CBCD Order Info: 68720-0 - SED Performed By: #### L 100.0100, L501.9910, L500.4100 #### [facility] [address] [place], [address] Eosinophils/100 WBC (Bld) 1.5 % Normal 0-5 [facility] Comment on above: Order Comment: Order Date: 12/09/24 Order Info: 183- - CBCD Order Info: [id number] - SED Performed By: #### L 100.0100, L501.9910, L500.4100 #### [facility] [address] [place], [address] Erythrocyte distribution width (RBC) [Ratio] 12.0 % Normal 11.6-14.6 [facility] Comment on above: Order Comment: Order Date: 12/09/24 Order Info: 183- - CBCD Order Info: [id number] - SED Performed By: #### L 100.0100, L501.9910, L500.4100 #### [facility] [address] [place], [address] Hematocrit (Bld) [Volume fraction] 42.9 % Normal 40-54 [facility] Comment on above: Order Comment: Order Date: 12/09/24 Order Info: 183-1 - CBCD Order Info: 60942-2 - SED Performed By: #### L 100.0100, L501.9910, L500.4100 #### [facility] [address] [place], [address] Hemoglobin (Bld) [Mass/Vol] 14.6 g/dL Normal 13.0-16.5 [facility] Comment on above: Order Comment: Order Date: 12/09/24 Order Info: 183-07 - CBCD Order Info: 65500-2 - SED Performed By: #### L 100.0100, L501.9910, L500.4100 #### [facility] [address] [place], [address] IG% 0.400 Normal 0.0-0.9 [facility] Comment on above: Order Comment: Order Date: 12/09/24 Order Info: 183- - CBCD Order Info: [id number] - SED Result Comment: IG% - Immature Granulocytes (promyelocytes, myelocytes and metamyelocytes) > 1% indicates that a LEFT SHIFT is Present. Performed By: #### L 100.0100, L501.9910, L500.4100 #### [facility] [address] [place], [address] Lymphocytes/100 WBC (Bld) 40.5 % Normal 19-41 [facility] Comment on above: Order Comment: Order Date: 12/09/24 Order Info: 183-07 - CBCD Order Info: 86247-1 - SED Performed By: #### L 100.0100, L501.9910, L500.4100 #### [facility] [address] [place], [address] MCH (RBC) [Entitic mass] 32.0 pg Normal 27.0-32.0 [facility] Comment on above: Order Comment: Order Date: 12/09/24 Order Info: [id number] - CBCD Order Info: [id number] - SED Performed By: #### L 100.0100, L501.9910, L500.4100 #### [facility] [address] [place], [address] MCHC (RBC) [Mass/Vol] 34.0 g/dL Normal 32-36 [facility] Comment on above: Order Comment: Order Date: 12/09/24 Order Info: 183-1 - CBCD Order Info: 62831-7 - SED Performed By: #### L 100.0100, L501.9910, L500.4100 #### [facility] [address] [place], [address] MCV (RBC) [Entitic vol] 94.1 fL High 80-[address] [facility] Comment on above: Order Comment: Order Date: 12/09/24 Order Info: 183- - CBCD Order Info: 77518-5 - SED Performed By: #### L 100.0100, L501.9910, L500.4100 #### [facility] [address] [place], [address] Monocytes/100 WBC (Bld) 13.6 % High 0-[address] [facility] Comment on above: Order Comment: Order Date: 12/09/24 Order Info: 183-07 - CBCD Order Info: 53579-5 - SED Performed By: #### L 100.0100, L501.9910, L500.4100 #### [facility] [address] [place], [address] Neutrophils/100 WBC (Bld) 43.2 % Low 47-70 [facility] Comment on above: Order Comment: Order Date: 12/09/24 Order Info: 183- - CBCD Order Info: 27362-4 - SED Performed By: #### L 100.0100, L501.9910, L500.4100 #### [facility] [address] [place], [address] Nucleated RBC (Bld) [#/Vol] 0 10*3/uL Normal 0-5 [facility] Comment on above: Order Comment: Order Date: 12/09/24 Order Info: 183- - CBCD Order Info: 79439-0 - SED Performed By: #### L 100.0100, L501.9910, L500.4100 #### [facility] [address] [place], [address] Platelet mean volume (Bld) [Entitic vol] 11.1 fL Normal 6.2-12.0 [facility] Comment on above: Order Comment: Order Date: 12/09/24 Order Info: 183-1 - CBCD Order Info: 51362-7 - SED Performed By: #### L 100.0100, L501.9910, L500.4100 #### [facility] [address] [place], [address] Platelets (Bld) [#/Vol] 193 10*3/uL Normal 150-450 [facility] Comment on above: Order Comment: Order Date: 12/09/24 Order Info: 183- - CBCD Order Info: [id number] - SED Performed By: #### L 100.0100, L501.9910, L500.4100 #### [facility] [address] [place], [address] RBC (Bld) [#/Vol] 4.56 10*6/uL Low 4.6-6.2 [facility] Comment on above: Order Comment: Order Date: 12/09/24 Order Info: 183- - CBCD Order Info: 61282-0 - SED Performed By: #### L 100.0100, L501.9910, L500.4100 #### [facility] [address] [place], [address] RDW SD 41.9 fl Normal 35.1-43.9 [facility] Comment on above: Order Comment: Order Date: 12/09/24 Order Info: [id number] - CBCD Order Info: 24471-9 - SED Performed By: #### L 100.0100, L501.9910, L500.4100 #### [facility] [address] [place], [address] WBC (Bld) [#/Vol] 5.3 10*3/uL Normal 4.4-11.0 [facility] Comment on above: Order Comment: Order Date: 12/09/24 Order Info: 0184-1 - CBCD Order Info: 26670-6 - SED Performed By: #### L 100.0100, L501.9910, L500.4100 #### [facility] [address] [place], [place], [id number] CRPon 12-09-2024 C-REACTIVE PROT < 3.00 Normal 0.0-3.0 [facility] Comment on above: Order Comment: Order Date: 12/09/24 Order Info: 0786-1 - CMP Order Date: 11/29/24 Order Info: [id number] - LIPID Order Info: [id number] - CRP Order Info: 2856-07 - PSA Performed By: #### L 101.9900, L500.4050, L501.6710, L3100.5475 #### [facility] [address] [facility] [place], [place], [address] Calculated very low density lipoprotein (VLDL) cholesterol measurementOrdered By: Jennie Suarez on 12-09-2024 Calculated very low density lipoprotein (VLDL) cholesterol measurement 13 mg/dL 5-40 [facility] Carbon dioxide, total [Moles /volume] in Central venous bloodOrdered By: Jennie Suarez on 12-09-2024 CO2 [Moles/Vol] 26.3 mmol/L 21.0-32.0 [facility] Chloride assayOrdered By: Jim Suarez on 12-09-2024 Chloride [Moles/Vol] 103 mmol/L 98-108 [facility] Comprehensive Metabolic Prof ilon 12-09-2024 Albumin [Mass/Vol] 4.6 g/dL Normal 3.5-5.0 [facility] Comment on above: Order Comment: Order Date: 12/09/24 Order Info: 0786-1 - CMP Order Date: 11/29/24 Order Info: [id number] - LIPID Order Info: [id number] - CRP Order Info: 2856-07 - PSA Performed By: #### L 101.9900, L500.4050, L501.6710, L3100.5475 #### [facility] [address] [place], [address] Albumin/Globulin [Mass ratio] 1.8 {ratio} Normal 0.9-2.4 [facility] Comment on above: Order Comment: Order Date: 12/09/24 Order Info: 0786-1 - CMP Order Date: 11/29/24 Order Info: [id number] - LIPID Order Info: 11896-6 - CRP Order Info: 2851 - PSA Performed By: #### L 101.9900, L500.4050, L501.6710, L3100.5475 #### [facility] [address] [place], [address] ALK PHOS 63 U/L Normal 40-129 [facility] Comment on above: Order Comment: Order Date: 12/09/24 Order Info: 0786-1 - CMP Order Date: 11/29/24 Order Info: [id number] - LIPID Order Info: [id number] - CRP Order Info: 28501-25 - PSA Performed By: #### L 101.9900, L500.4050, L501.6710, L3100.5475 #### [facility] [address] [place], [address] ALT [Catalytic activity/Vol] 20 U/L Normal <=46 [facility] Comment on above: Order Comment: Order Date: 12/09/24 Order Info: 0786-1 - CMP Order Date: 11/29/24 Order Info: [id number] - LIPID Order Info: [id number] - CRP Order Info: 2857-1 - PSA Performed By: #### L 101.9900, L500.4050, L501.6710, L3100.5475 #### [facility] [address] [place], [address] AST [Catalytic activity/Vol] 31 U/L Normal <=37 [facility] Comment on above: Order Comment: Order Date: 12/09/24 Order Info: 0786-1 - CMP Order Date: 11/29/24 Order Info: [id number] - LIPID Order Info: [id number] - CRP Order Info: 28501-25 - PSA Performed By: #### L 101.9900, L500.4050, L501.6710, L3100.5475 #### [facility] [address] [place], [address] Bilirubin [Mass/Vol] 0.34 mg/dL Normal 0.00-1.30 [facility] Comment on above: Order Comment: Order Date: 12/09/24 Order Info: 0786- - CMP Order Date: 11/29/24 Order Info: [id number] - LIPID Order Info: [id number] - CRP Order Info: 28501-25 - PSA Performed By: #### L 101.9900, L500.4050, L501.6710, L3100.5475 #### [facility] [address] [place], [address] BUN/CRE 16.9 RATIO Normal 10-20 [facility] Comment on above: Order Comment: Order Date: 12/09/24 Order Info: 0786- - CMP Order Date: 11/29/24 Order Info: [id number] - LIPID Order Info: [id number] - CRP Order Info: 28501-25 - PSA Performed By: #### L 101.9900, L500.4050, L501.6710, L3100.5475 #### [facility] [address] [place], [address] Calcium [Mass/Vol] 9.9 mg/dL Normal 7.6-11.0 [facility] Comment on above: Order Comment: Order Date: 12/09/24 Order Info: 0786- - CMP Order Date: 11/29/24 Order Info: [id number] - LIPID Order Info: [id number] - CRP Order Info: 28501-25 - PSA Performed By: #### L 101.9900, L500.4050, L501.6710, L3100.5475 #### [facility] [address] [place], [address] Chloride [Moles/Vol] 103 mmol/L Normal 98-108 [facility] Comment on above: Order Comment: Order Date: 12/09/24 Order Info: 0786-1 - CMP Order Date: 11/29/24 Order Info: [id number] - LIPID Order Info: 74528-5 - CRP Order Info: 285-1 - PSA Performed By: #### L 101.9900, L500.4050, L501.6710, L3100.5475 #### [facility] [address] [place], [address] CO2 [Moles/Vol] 26.3 mmol/L Normal 21.0-32.0 [facility] Comment on above: Order Comment: Order Date: 12/09/24 Order Info: 785-1 - CMP Order Date: 11/29/24 Order Info: [id number] - LIPID Order Info: [id number] - CRP Order Info: 28501-25 - PSA Performed By: #### L 101.9900, L500.4050, L501.6710, L3100.5475 #### [facility] [address] [place], [address] Creatinine [Mass/Vol] 0.88 mg/dL Normal 0.70-1.20 [facility] Comment on above: Order Comment: Order Date: 12/09/24 Order Info: 785-1 - CMP Order Date: 11/29/24 Order Info: [id number] - LIPID Order Info: [id number] - CRP Order Info: 2851 - PSA Performed By: #### L 101.9900, L500.4050, L501.6710, L3100.5475 #### [facility] [address] [place], [address] GAP 11 Normal 5-15 [facility] Comment on above: Order Comment: Order Date: 12/09/24 Order Info: 0786-1 - CMP Order Date: 11/29/24 Order Info: [id number] - LIPID Order Info: [id number] - CRP Order Info: 28501-25 - PSA Performed By: #### L 101.9900, L500.4050, L501.6710, L3100.5475 #### [facility] [address] [place], [address] GFR/1.73 sq M.predicted among non-blacks MDRD (S/P/Bld) [Vol rate/Area] 99 mL/min/{1.73_m2} Normal >60 [facility] Comment on above: Order Comment: Order Date: 12/09/24 Order Info: 0786- - CMP Order Date: 11/29/24 Order Info: [id number] - LIPID Order Info: [id number] - CRP Order Info: 2856-07 - PSA Result Comment: mL/m in/1.73m2 CKD-EPI Creatinine Equation (2020) Performed By: #### L 101.9900, L500.4050, L501.6710, L3100.5475 #### [facility] [address] [facility] [place], [address] Globulin (S) [Mass/Vol] 2.6 g/dL Normal 2.2-4.2 [facility] Comment on above: Order Comment: Order Date: 12/09/24 Order Info: 0786- - CMP Order Date: 11/29/24 Order Info: [id number] - LIPID Order Info: [id number] - CRP Order Info: 2856-07 - PSA Performed By: #### L 101.9900, L500.4050, L501.6710, L3100.5475 #### [facility] [address] [place], [address] Glucose [Mass/Vol] 92 mg/dL Normal 70-99 [facility] Comment on above: Order Comment: Order Date: 12/09/24 Order Info: 0786- - CMP Order Date: 11/29/24 Order Info: [id number] - LIPID Order Info: [id number] - CRP Order Info: 2856-07 - PSA Performed By: #### L 101.9900, L500.4050, L501.6710, L3100.5475 #### [facility] [address] [place], [address] Potassium [Moles/Vol] 4.0 mmol/L Normal 3.3-5.1 [facility] Comment on above: Order Comment: Order Date: 12/09/24 Order Info: 0786-1 - CMP Order Date: 11/29/24 Order Info: [id number] - LIPID Order Info: [id number] - CRP Order Info: 285-1 - PSA Performed By: #### L 101.9900, L500.4050, L501.6710, L3100.5475 #### [facility] [address] [place], [address] Sodium [Moles/Vol] 140 mmol/L Normal 133-145 [facility] Comment on above: Order Comment: Order Date: 12/09/24 Order Info: 0786-1 - CMP Order Date: 11/29/24 Order Info: [id number] - LIPID Order Info: [id number] - CRP Order Info: 285-1 - PSA Performed By: #### L 101.9900, L500.4050, L501.6710, L3100.5475 #### [facility] [address] [place], [address] T PROT 7.2 g/dL Normal 5.9-8.4 [facility] Comment on above: Order Comment: Order Date: 12/09/24 Order Info: 0786-1 - CMP Order Date: 11/29/24 Order Info: [id number] - LIPID Order Info: 13889-0 - CRP Order Info: 285-1 - PSA Performed By: #### L 101.9900, L500.4050, L501.6710, L3100.5475 #### [facility] [address] [place], [address] Urea nitrogen [Mass/Vol] 15 mg/dL Normal 4-19 [facility] Comment on above: Order Comment: Order Date: 12/09/24 Order Info: 0786-1 - CMP Order Date: 11/29/24 Order Info: [id number] - LIPID Order Info: [id number] - CRP Order Info: 2857-1 - PSA Performed By: #### L 101.9900, L500.4050, L501.6710, L3100.5475 #### [facility] [address] [place], [place], [address] Eosinophil percentageOrdered By: Jennie Suarez on 12-09-2024 Eosinophils/100 WBC (Bld) 1.5 % 0-5 [facility] Erythrocyte Sed Rateon 12-09 SED RATE 4 mm/hr Normal 0-20 [facility] Comment on above: Order Comment: Order Date: 12/09/24 Order Info: [id number] - CBCD Order Info: 69623-0 - SED Performed By: #### L 101.9900, L500.4050, L501.6710, L3100.5475 #### [facility] [address] [place], [place], [address] Erythrocyte distribution wid th ratioOrdered By: Jennie Suarez on 12-09-2024 Erythrocyte distribution width (RBC) [Ratio] 12.0 % 11.6-14.6 [facility] Erythrocyte distribution wid th standard deviationOrdered By: Jennie Suarez on 12-09-2024 Erythrocyte distribution width (RBC) [Ratio] 41.9 fl 35.1-43.9 [facility] Erythrocyte sedimentation ra teOrdered By: Jennie Suarez on 12-09-2024 ESR (Bld) [Velocity] 4 mm/h 0-20 [facility] Glomerular filtration rate ( GFR) estimation/1.73 sq m using serum, plasma, or whole bOrdered By: Jennie Suarez on 12-09-2024 GFR/1.73 sq M.predicted among non-blacks MDRD (S/P/Bld) [Vol rate/Area] 99 mL/min/{1.73_m2} >60 [facility] Comment on above: mL/min/1.73m2 CKD-EP I Creatinine Equation (2020) Hematocrit Auto (Bld) [Volum e fraction]Ordered By: Jennie Suarez on 12-09-2024 Hematocrit (Bld) [Volume fraction] 42.9 % 40-54 [facility] Hemoglobin measurementOrdere d By: Jennie Suarez on 12-09-2024 Hemoglobin (Bld) [Mass/Vol] 14.6 g/dL 13.0-16.5 [facility] Immature granulocytes/100 WB C Auto (Bld)Ordered By: Jennie Suarez on 12-09-2024 Immature granulocytes/100 WBC (Bld) 0.400 % 0.0-0.9 [facility] Comment on above: IG% - Immature Granu locytes (promyelocytes, myelocytes and metamyelocytes) > 1% indicates that a LEFT SHIFT is Present. LDL calc ser/plasOrdered By: Jennie Suarez on 12-09-2024 Cholesterol in LDL [Mass/Vol] 105 mg/dL [facility] Comment on above: Lkcbsfmjte=248-577 m g/dL & Higher Zkkk=230 mg/dL or greater Laboratory - Chemistry and C hemistry - challengeOrdered By: Jennie Suarez on 12-09-2024 AST [Catalytic activity/Vol] 31 U/L <38 [facility] Lipid Profileon 12-09-2024 CHOL:HDL 2.30 Normal [facility] Comment on above: Order Comment: Order Date: 12/09/24 Order Info: 0786-1 - CMP Order Date: 11/29/24 Order Info: [id number] - LIPID Order Info: [id number] - CRP Order Info: 2857-1 - PSA Performed By: #### L 101.9900, L500.4050, L501.6710, L3100.5475 #### [facility] [address] [place], [address] Cholesterol [Mass/Vol] 209 mg/dL High <=200 [facility] Comment on above: Order Comment: Order Date: 12/09/24 Order Info: [id number] - CMP Order Date: 11/29/24 Order Info: [id number] - LIPID Order Info: [id number] - CRP Order Info: 2857-1 - PSA Result Comment: Chol esterol level, Desirable <200 mg/dL Borderline high cholesterol 200-239 mg/dL High cholesterol >=240 mg/dL Recommendations of the NCEP Adult Treatment Panel for the following risk-cutoff thresholds for the [place] population. Performed By: #### L 101.9900, L500.4050, L501.6710, L3100.5475 #### [facility] [address] [place], [address] Cholesterol in HDL [Mass/Vol] 91 mg/dL Normal [facility] Comment on above: Order Comment: Order Date: 12/09/24 Order Info: 0786-1 - CMP Order Date: 11/29/24 Order Info: [id number] - LIPID Order Info: [id number] - CRP Order Info: 2857-1 - PSA Result Comment: [place] onal Cholesterol Education Program (NCEP) guidelines: <40 mg/dL: Low HDL-cholesterol (major risk factor for CHD) >= 60 mg/dL: High HDL-cholesterol (negative risk factor for CHD) HDL-cholesterol is affected by a number of factors, e.g. smoking, exercise, hormones, sex and age. Performed By: #### L 101.9900, L500.4050, L501.6710, L3100.5475 #### [facility] [address] [place], [address] Cholesterol in LDL [Mass/Vol] 105 mg/dL Normal [facility] Comment on above: Order Comment: Order Date: 12/09/24 Order Info: 0786-1 - CMP Order Date: 11/29/24 Order Info: [id number] - LIPID Order Info: [id number] - CRP Order Info: 2857-1 - PSA Result Comment: Bord fepvoy=028-272 mg/dL Higher Hfvp=477 mg/dL or greater Performed By: #### L 101.9900, L500.4050, L501.6710, L3100.5475 #### [facility] [address] [place], [address] Cholesterol in VLDL [Mass/Vol] 13 mg/dL Normal 5-40 [facility] Comment on above: Order Comment: Order Date: 12/09/24 Order Info: 0786-1 - CMP Order Date: 11/29/24 Order Info: [id number] - LIPID Order Info: [id number] - CRP Order Info: 2851 - PSA Performed By: #### L 101.9900, L500.4050, L501.6710, L3100.5475 #### [facility] [address] [place], [place], [address] Triglyceride [Mass/Vol] 66 mg/dL Normal [facility] Comment on above: Order Comment: Order Date: 12/09/24 Order Info: 0786-1 - CMP Order Date: 11/29/24 Order Info: [id number] - LIPID Order Info: [id number] - CRP Order Info: [id number] - PSA Result Comment: The drugs N-Acetylcysteine and Metamizole may falsely depress this assay. Normal range: <150 mg/dL Borderline High: 150-199 mg/dL High: 200-499 mg/dL Very High: >500 mg/dL Performed By: #### L 101.9900, L500.4050, L501.6710, L3100.5475 #### [facility] [address] [place], [place], [address] MCV (mean corpuscular volume ) determinationOrdered By: Jennie Suarez on 12-09-2024 MCV (RBC) [Entitic vol] 94.1 fL High 80-[address] [facility] Mean corpuscular hemoglobin (MCH) determinationOrdered By: Jennie Suarez on 12-09-2024 MCH (RBC) [Entitic mass] 32.0 pg 27.0-32.0 [facility] Mean corpuscular hemoglobin concentration (MCHC) determinationOrdered By: Jennie Suarez on 12-09-2024 MCHC (RBC) [Mass/Vol] 34.0 g/dL 32-36 [facility] Mean platelet volume determi nationOrdered By: Jennie Suarez on 12-09-2024 Platelet mean volume (Bld) [Entitic vol] 11.1 fL 6.2-12.0 [facility] Monocyte percentageOrdered B y: Jennie Suarez on 12-09-2024 Monocytes/100 WBC (Bld) 13.6 % High 0-[address] [facility] Neck for Soft Tissueon 12-09 Neck for Soft Tissue [facility] [address] [place], [place] [address] Neck for Soft Tissue MR#: [id number] Acct: [id number] Name: KIMMY GUTHRIE Rep #: [id number] : 1965 M 59 From: Russell Garcia MD PCP: Dr. Jennie Suarez MD Status: REG CLI Study: Neck for Soft Tissue Date of Exam: 12/09/24 Exam# [id number] Ordering Dr: Jennie Suarez MD PROCEDURE: NECK [...] greatest at C5-6 and C6-7. Reading Location: [facility] CC: Dr. Jennie Suarez MD Director Product Safety: Signed Normal [facility] Neutrophil percentageOrdered By: Jennie Suarez on 12-09-2024 Neutrophils/100 WBC (Bld) 43.2 % Low 47-70 [facility] Nucleated red blood cell per centageOrdered By: Jennie Suarez on 12-09-2024 Nucleated RBC/100 WBC (Bld) [Ratio] 0 % 0-5 [facility] PSA,Total - Annual Screenon 12-09-2024 PSA,TOT SCREEN 1.87 ng/mL Normal 0.02-4.00 [facility] Comment on above: Order Comment: Order Date: 12/09/24 Order Info: [id number] - CMP Order Date: 11/29/24 Order Info: [id number] - LIPID Order Info: [id number] - CRP Order Info: [id number] - PSA [...] #### L 101.9900, L500.4050, L501.6710, L3100.5475 #### [facility] [address] [place], [address] Platelet countOrdered By: Jim Suarez on 12-09-2024 Platelets (Bld) [#/Vol] 193 10*3/uL 150-450 [facility] Potassium measurement (mass/ volume)Ordered By: Jennie Suarez on 12-09-2024 Potassium (Unsp spec) [Mass/Vol] 4.0 mmol/L 3.3-5.1 [facility] RBC Auto (Bld) [#/Vol]Ordere d By: Jennie Suarez on 12-09-2024 RBC (Bld) [#/Vol] 4.56 10*6/uL Low 4.6-6.2 [facility] Screening total cholesterol/ high density lipoprotein (HDL) cholesterol ratioOrdered By: Jennie Suarez on 12-09-2024 Cholesterol.total/Mayda sterol in HDL [Mass ratio] 2.30 {ratio} [facility] Serum creatinine measurement (mass/volume)Ordered By: Jennie Suarez on 12-09-2024 Creatinine [Mass/Vol] 0.88 mg/dL 0.70-1.20 [facility] Serum globulin measurementOr dered By: Jennie Suarez on 12-09-2024 Globulin (S) [Mass/Vol] 2.6 g/dL 2.2-4.2 [facility] Serum glucose measurement (m ass/volume)Ordered By: Jennie Suarez on 12-09-2024 Glucose [Mass/Vol] 92 mg/dL 70-99 [facility] Serum or plasma C reactive p rotein measurement (mass/volume)Ordered By: Jennie Suarez on 12-09-2024 CRP [Mass/Vol] mg/L 0.0-3.0 [facility] Serum or plasma alanine darnell otransferase (ALT) measurementOrdered By: Jennie Suarez on 12-09-2024 ALT [Catalytic activity/Vol] 20 U/L <47 [facility] Serum or plasma albumin sedrick urement (mass/volume)Ordered By: Jennie Suarez on 12-09-2024 Albumin [Mass/Vol] 4.6 g/dL 3.5-5.0 [facility] Serum or plasma albumin/glob ulin mass ratioOrdered By: Jennie Suarez on 12-09-2024 Albumin/Globulin [Mass ratio] 1.8 {ratio} 0.9-2.4 [facility] Serum or plasma alkaline aidan sphatase measurementOrdered By: Jennie Suarez on 12-09-2024 ALP [Catalytic activity/Vol] 63 U/L 40-129 [facility] Serum or plasma calcium sedrick urement (mass/volume)Ordered By: Jennie Suarez on 12-09-2024 Calcium [Mass/Vol] 9.9 mg/dL 7.6-11.0 [facility] Serum or plasma cholesterol in HDL measurement (mass/volume)Ordered By: Jennie Suarez on 12-09-2024 Cholesterol in HDL [Mass/Vol] 91 mg/dL >40 [facility] Comment on above: National Cholesterol Education Program (NCEP) guidelines:<40 mg/dL: Low HDL-cholesterol (major risk factor for CHD)>= 60 mg/dL: High HDL-cholesterol (negative risk factor for CHD)HDL-cholesterol is affected by a number of factors, e.g. smoking, exercise, hormones, sex and age. Serum or plasma cholesterol measurement (mass/volume)Ordered By: Jennie Suarez on 12-09-2024 Cholesterol [Mass/Vol] 209 mg/dL High <201 [facility] Comment on above: Cholesterol level, D esirable <200 mg/dLBorderline high cholesterol 200-239 mg/dLHigh cholesterol >=240 mg/dLRecommendations of the NCEP Adult Treatment Panel for the following risk-cutoff thresholds for the [place] population. Serum or plasma urea nitroge n measurement (mass/volume)Ordered By: Jnenie Suarez on 12-09-2024 Urea nitrogen [Mass/Vol] 15 mg/dL 4-19 [facility] Sodium levelOrdered By: Jennie Suarez on 12-09-2024 Sodium [Moles/Vol] 140 mmol/L 133-145 [facility] Total proteinOrdered By: Sonia Suarez on 12-09-2024 Protein [Mass/Vol] 7.2 g/dL 5.9-8.4 [facility] Triglycerides measurementOrd ered By: Jennie Suarez on 12-09-2024 Triglyceride [Mass/Vol] 66 mg/dL <[address] [facility] Comment on above: The drugs N-Acetylcy steine and Metamizole may falsely depress this assay. Normal range: <150 mg/dLBorderline High: 150-199 mg/dLHigh: 200-499 mg/dLVery High: >500 mg/dL White blood cell (WBC) count Ordered By: Jennie Suarez on 12-09-2024 WBC (Bld) [#/Vol] 5.3 10*3/uL 4.4-11.0 [facility] Glucoseon 01-08-2024 Glucose [Mass/Vol] 85 mg/dL Normal 74-106 [facility] Comment on above: Order Comment: Order Date: 01/08/24 Order Info: [id number] - LIPID Order Info: [id number] - CRE Order Info: [id number] - PSA Performed By: #### L 501.0100, L501.9940 #### [facility] [address] [place], [place], [id number] Lipid Profileon 01-08-2024 Cholesterol [Mass/Vol] 213 mg/dL High 200 [facility] Comment on above: Order Comment: Order Date: 01/08/24 Order Info: [id number] - LIPID Order Info: [id number] - CRE Order Info: [id number] - PSA Result Comment: <200 mg/dL Desirable 200-240 mg/dL Borderline >240 mg/dL High Risk Performed By: #### L 501.1105, L500.4100 #### [facility] [address] [place], [place], [id number] Cholesterol in HDL [Mass/Vol] 98 mg/dL Normal [facility] Comment on above: Order Comment: Order Date: 01/08/24 Order Info: [id number] - LIPID Order Info: [id number] - CRE Order Info: [id number] - PSA Result Comment: The drugs N-Acetylcysteine and Metamizole may falsely depress this assay. Reference Range HDL <40 mg/dL Low HDL Cholesterol HDL >or= 60 mg/dL High HDL Cholesterol Performed By: #### L 501.1105, L500.4100 #### [facility] [address] [place], [address] Cholesterol in LDL [Mass/Vol] 106 mg/dL Normal 0-130 [facility] Comment on above: Order Comment: Order Date: 01/08/24 Order Info: [id number] - LIPID Order Info: [id number] - CRE Order Info: [id number] - PSA Performed By: #### L 501.1105, L500.4100 #### [facility] [address] [place], [address] Cholesterol in VLDL [Mass/Vol] 9 mg/dL Normal 5-40 [facility] Comment on above: Order Comment: Order Date: 01/08/24 Order Info: [id number] - LIPID Order Info: [id number] - CRE Order Info: [id number] - PSA Performed By: #### L 501.1105, L500.4100 #### [facility] [address] [place], [address] Triglyceride [Mass/Vol] 43 mg/dL Normal [facility] Comment on above: Order Comment: Order Date: 01/08/24 Order Info: [id number] - LIPID Order Info: [id number] - CRE Order Info: [id number] - PSA Result Comment: The drugs N-Acetylcysteine and Metamizole may falsely depress this assay. Serum Triglycerides Reference Interval Normal <150 mg/dL Borderline high 150 - 199 mg/dL High 200 - 499 mg/dL Very High > or = 500 mg/dL Performed By: #### L 501.1105, L500.4100 #### [facility] [address] [place], [address] PSA,Total- Diagnosticon 12-26 PSA, DIAGNOSTIC 6.15 ng/mL High 0.0-4.0 [facility] Comment on above: Order Comment: Order Date: 01/08/24 Order Info: [id number] - LIPID Order Info: [id number] - CRE Order Info: [id number] - PSA Result Comment: This test was performed using the TPSA assay method for the [employer] chemistry system. Values obtained with different assay methods cannot be used interchangably. When changing PSA assays in the course of monitoring a patient, additional sequential testing should be carried out to confirm baseline values. Performed By: #### L 501.0100, L501.9940 #### [facility] [address] [place], [address] Serum Creatinine AND GFRon 0 - Creatinine [Mass/Vol] 0.85 mg/dL Normal 0.70-1.30 [facility] Comment on above: Order Comment: Order Date: 01/08/24 Order Info: [id number] - LIPID Order Info: [id number] - CRE Order Info: [id number] - PSA Result Comment: The validity of the calculated GFR GFRAA in patients over 70 years has not been determined. Clinical correlation is essential. Performed By: #### L 501.1105, L500.4100 #### [facility] [address] [place], [address] EST GFR - AA 119 mL/min Normal >60 [facility] Comment on above: Order Comment: Order Date: 01/08/24 Order Info: [id number] - LIPID Order Info: [id number] - CRE Order Info: [id number] - PSA Result Comment: Afri can Latvian GFR Calc Performed By: #### L 501.1105, L500.4100 #### [facility] [address] [place], [address] GFR/1.73 sq M.predicted among non-blacks MDRD (S/P/Bld) [Vol rate/Area] 99 mL/min/{1.73_m2} Normal >60 [facility] Comment on above: Order Comment: Order Date: 01/08/24 Order Info: [id number] - LIPID Order Info: [id number] - CRE Order Info: [id number] - PSA Result Comment: Non- GFR Calc Performed By: #### L 501.1105, L500.4100 #### [facility] [place], [address] No Panel InformationOrdered By: Jimmy Azevedo on 03-25-2023 Prostate Specific Antigen Total 1.97 ng/mL 0.0-4.0 [facility] Comment on above: This test was perfor med using the TPSA assay method for [employer] chemistry system. Values obtained with differentassay methods cannot be used interchangably.When changing PSA assays in the course of monitoring apatient, additional sequential testing should be carriedout to confirm baseline values. Basophil percentageOrdered B y: Dr. Suarez on 01-06-2023 Cholesterol [Mass/Vol] 226 mg/dL <200 [facility] Comment on above: <200 mg/dL Desirable 200-240 mg/dL Borderline >240 mg/dL High Risk Glucose [Mass/Vol] 101 mg/dL 74-106 [facility] Comment on above: Fasting Glucose resu lt from 100 to 125 mg/dL suggests IMPAIRED HOMEOSTASIS per A.D.A. criteria. Triglyceride [Mass/Vol] 68 mg/dL <199 [facility] Comment on above: The drugs N-Acetylcy steine and Metamizole may falsely depress this assay.Serum Triglycerides Reference Interval Normal <150 mg/dL Borderline high 150 - 199 mg/dL High 200 - 499 mg/dL Very High > or = 500 mg/dL No Panel InformationOrdered By: Dr. Suarez on 01-06-2023 Estimated GFR (MDRD) Amer 111 mL/min >60 [facility] Comment on above: GFR Calc Estimated GFR (MDRD) Non-Af Amer 92 mL/min >60 [facility] Comment on above: Non- GFR Calc Hepatitis C Antibody Non-Reactive Nonreactive [facility] Comment on above: Non Reactive: < 0.8 Equivocal: >/= 0.8 to < 1.0 Reactive: >/= 1.0The CDC recommends that a reactive/equivocal HCV antibody result be followed up by the HCV Nucleic Acid Amplificationtest (122773) Prostate Specific Antigen Screen 4.26 ng/mL 0.00-4.00 [facility] Comment on above: This test was perfor med using the TPSA assay method for the[employer] chemistry system. Values obtained with differentassay methods cannot be used interchangably.When changing PSA assays in the course of monitoring apatient, additional sequential testing should be carriedout to confirm baseline values. Serum or plasma cholesterol in HDL measurement (mass/volume)Ordered By: Dr. Suarez on 01-06-2023 Cholesterol in HDL [Mass/Vol] 84 mg/dL >40 [facility] Comment on above: The drugs N-Acetylcy steine and Metamizole may falsely depress this assay. Reference Range HDL <40 mg/dL Low HDL Cholesterol HDL >or= 60 mg/dL High HDL Cholesterol Serum or plasma cholesterol in VLDL measurement (mass/volume)Ordered By: Dr. Suarez on 01-06-2023 Cholesterol in VLDL [Mass/Vol] 14 mg/dL 5-40 [facility] Serum or plasma creatinine m easurement (mass/volume)Ordered By: Dr. Suarez on 01-06-2023 Creatinine [Mass/Vol] 0.90 mg/dL 0.70-1.30 [facility] Comment on above: The validity of the calculated GFR & GFRAA in patients over 70 years has not been determined. Clinical correlation is essential. Serum or plasma low density lipoprotein (LDL) cholesterol measurement (mass/volume)Ordered By: Dr. Suarez on 01-06-2023 Cholesterol in LDL [Mass/Vol] 128 mg/dL 0-130 [facility] Office Visit: c-scopeon 03-28 Alcoholism counseling (procedure) no Invalid Interpretation Code [facility] Work Phone: Documentation of current medications (procedure) Done Invalid Interpretation Code [facility] Work Phone: Fall risk assessment No Invalid Interpretation Code [facility] Work Phone: Protein mass conc Done Invalid Interpretation Code [facility] [employer] Work Phone: Protein mass conc no Invalid Interpretation Code [facility] Work Phone: Tobacco smoking status NHIS Never Invalid Interpretation Code [facility] Work Phone: Tobacco smoking status NHIS Never smoker Invalid Interpretation Code [facility] Work Phone: Tobacco use CPHS Never smoker Invalid Interpretation Code [facility] Work Phone: Office Visit: UC: yo luis 02-03-2017 Documentation of current medications (procedure) Done Invalid Interpretation Code [facility] Work Phone: Documentation of current medications (procedure) T Invalid Interpretation Code [facility] Work Phone: Fall risk assessment No Invalid Interpretation Code [facility] Work Phone: Tobacco use HS Never smoker Invalid Interpretation Code [facility] Work Phone: Vital Signs Date Time Vital Sign Value Performing Clinician Facility 04-26-2022 07:54-0400 Body temperature 98 [degF] Dr. Jennie Suarez Work Phone: [facility] Work Phone: 04-26-2022 07:54-0400 Diastolic blood pressure 79 mm[Hg] Dr. Jennie Suarez Work Phone: [facility] Work Phone: 04-26-2022 07:54-0400 Heart rate 73 /min Dr. Jennie Suarez Work Phone: [facility] Work Phone: 04-26-2022 07:54-0400 Respiratory rate 16 /min Dr. Jennie Suarez Work Phone: [facility] Work Phone: 04-26-2022 07:54-0400 SaO2% (BldA) [Mass fraction] 100 % Dr. Jennie Suarez Work Phone: [facility] Work Phone: 04-26-2022 07:54-0400 Systolic blood pressure 118 mm[Hg] Dr. Jennie Suarez Work Phone: [facility] Work Phone: 04-26-2022 06:55-0400 Body height 167.[address] Jennie Suarez Work Phone: [facility] Work Phone: 04-26-2022 06:55-0400 Body mass index (BMI) [Ratio] 20.7 kg/m2 Dr. Jennie Suarez Work Phone: [facility] Work Phone: 04-26-2022 06:55-0400 Body weight 58.[address] Jennie Suarez Work Phone: [facility] Work Phone: 03-08-2022 16:12-0400 Body mass index (BMI) [Ratio] 21.7 kg/m2 Dr. Jennie Suarez Work Phone: [facility] Work Phone: 03-08-2022 16:12-0400 Body weight 61.[address] Jennie Suarez Work Phone: [facility] Work Phone: 04-08-2017 13:03-0400 BMI (Body Mass Index) 20.98 kg/m2 Russell Lam MD [facility] Work Phone: 04-08-2017 13:03-0400 BP Diastolic 83 mm[Hg] Russell Lam MD [facility] Work Phone: 04-08-2017 13:03-0400 BP Systolic 137 mm[Hg] Russell Lam MD [facility] Work Phone: 04-08-2017 13:03-0400 Height 167.64 cm Russell Lam MD [facility] Work Phone: 04-08-2017 13:03-0400 Pulse (Heart Rate) 80 /min Russell Lam MD [facility] Work Phone: 04-08-2017 13:03-0400 Respiratory Rate 16 /min Russell Lam MD [facility] Work Phone: 04-08-2017 13:03-0400 Weight 58.97 kg Russell Lam MD [facility] Work Phone: 02-03-2017 11:43-0400 BMI (Body Mass Index) 20.56 kg/m2 Cher Moreno LPN [facility] Work Phone: 02-03-2017 11:43-0400 Body Temperature 98.7 [degF] Cher Moreno LPN [facility] Work Phone: 02-03-2017 11:43-0400 BP Diastolic 72 mm[Hg] Cher Moreno LPN [facility] Work Phone: 02-03-2017 11:43-0400 BP Systolic 108 mm[Hg] Cher Moreno LPN [facility] Work Phone: 02-03-2017 11:43-0400 Height 167.64 cm Cher Moreno LPN [facility] Work Phone: 02-03-2017 11:43-0400 Pulse (Heart Rate) 66 /min Cher Moreno LPN [facility] Work Phone: 02-03-2017 11:43-0400 Respiratory Rate 12 /min Cher Moreno LPN [facility] Work Phone: 02-03-2017 11:43-0400 Weight 57.79 kg Cher Moreno LPN [facility] Work Phone: Encounters Encounter Date Encounter Type Care Provider Facility Start: 01-18-2025 ambulatory JENNIE SUAREZ MD [facility] Start: 12-09-2024 End: 12-09-[address] Jennie Suarez MD Work Phone: [facility] Work Phone: Start: 12-09-2024 End: 12-09-[address] Jennie Suarez MD [facility] [place] Work Phone: Start: 12-09-2024 End: 12-09-2024 ambulatory Jennie Suarez Facility:[facility] Start: 01-17-2024 Encounter for genera l adult medical examination without abnormal findings Jennie Suarez [facility] Start: 01-08-2024 End: 01-08-2024 ambulatory Jennie Suarez Facility:[facility] Start: 03-25-2023 End: 03-25-2023 ambulatory [facility] Work Phone: Start: 03-25-2023 End: 03-25-2023 Patient encounter procedure [facility] Work Phone: Start: 01-06-2023 End: 01-06-2023 ambulatory [facility] Work Phone: Start: 01-06-2023 End: 01-06-2023 Patient encounter procedure [facility] [place] Start: 04-26-2022 Non-patient / Non-visit Dr. Jim Suarez Work Phone: [facility] Start: 04-26-2022 End: 04-26-2022 Admission to same day surgery center Dr. Jennie Suarez Work Phone: [facility] Start: 04-26-2022 End: 04-26-[address] Jennie Suarez Work Phone: [facility] Work Phone: Start: 03-08-2022 Non-patient / Non-visit Dr. Jim Suarez Work Phone: [facility] Procedures Date Procedure Procedure Detail Performing Clinician Start: 12-09-[address] Sonia Suarez MD Work Phone: Comment on above: Performed at: [address] [id number] Director: Sly Rivera PhD, Phone: [phone] Start: 12-09-2024 Prostate specific an tigen measurement [...] Start: 04-26-[address] Jennie De Jesus [facility] Work Phone: Plan of Treatment Date Care Activity Detail Author Start: 04-26-2022 Patient discharge [facility] Work Phone: Start: 04-08-2017 End: 04-08-2017 Colonoscopy flx dx w/collj spec when pfrmd Colonoscopy [facility] Work Phone: Start: 04-08-2017 End: 04-08-2017 Appointment Appointment [facility] Work Phone: Start: 04-08-2017 End: 04-08-2017 Diagnostic colonoscopy Colonoscopy [facility] Work Phone: Start: 02-03-2017 End: 02-03-2017 Appointment Appointment [facility] Work Phone: Colonoscopy [facility] Work Phone: Patient Education CONJUNCTIVITIS [facility] Work Phone: Patient referral [facility] Work Phone: Payers Date Payer Category Payer Unknown [id number] 2024 Private Health Insurance [id number] 2024 Self-pay [id number] 1965 Unknown [id number] Unknown [facility] [id number] Unknown [id number] Unknown [id number] Social History Date Type Detail Facility Start: 04-24-2022 Tobacco smoking stat [facility] Unknown if ever smoked [facility] Start: 1965 Sex Assigned At Male [facility] Start: 04-24-2022 Tobacco smoking stat [facility] Ex-smoker (finding) [facility] Goals Date Patient Goal Desired Activity /State Mental Status Date Assessment Result Facility 04-26-2022 Cognitive function Voice/Name;Touch/Rishiki saniya [facility] Work Phone: Radiology Diagnostic study note 12-10-2024 Note Date & Type Note Facility 12-10-2024 Radiology Diagnostic study note [facility] [address] [place] [address] Neck for Soft Tissue MR#: [id number] Acct: [id number] Name: KIMMY GUTHRIE Rep #: [id number] : 1965 M 59 From: Jg Garcia MD PCP: Dr. Jennie Suarez MD Status: REG CLI Study:Neck for Soft Tissue Date of Exam: 12/09/24 Exam# [id number] Ordering Dr: Jim Suarez MD PROCEDURE: NECK [...] greatest at C5-6 and C6-7. Reading Location: [facility] CC: Dr. Jennie Suarez MD ~ Director Product Safety: Signed [facility] Evaluation note Note Date & Type Note Facility Evaluation note Diagnosis Onset Date Encounter for screening for malignant neoplasm of colon acute [facility] Work Phone: Evaluation note Note Date & Type Note Facility Evaluation note No assessment information availa ble [facility] Work Phone: Reason for referral (narrative) Note Date & Type Note Facility Reason for referral (narrative) No reason for referral information available [facility] Work Phone: Chief Complaint and Reason for [...] No April 24, 2022 9:41am Power of Territory Sales Manager No March 9:41am Summary Purpose Additional Source [...] section and content) DATE CREATED AUTHOR 12/25/2024 [facility] DATE CREATED AUTHOR AUTHOR'S JANIYA ESPARZA 01/19/2025 [facility] FOR RECORDS PERTAINING TO PATIENTS WHO ARE [...] BE BASED ON THE PRIMARY CLINICAL RECORDS. [facility] [employer] provides no warranty or guarantee of the accuracy or completeness of information in this document.
== END | disposition home or self-care (01) ==
LOC: CT 06:12
PROVIDERS: PCP Family Medicine; Referring Provider Family Medicine; Visit Provider Family Medicine
DX: M54.2 Cervicalgia (principal)
CPT/HCPCS: 70490